=== PATIENT | female | born 1965 | race African-American/Black ===

== ENCOUNTER 2020-12-28 16:51 | Emergency (ER) | payer OTHER, MEDICAID ==
[~2020-12-28] VITALS: Ht 170.2 cm; Wt 122.5 kg
[~2020-12-28 16:51] MED LIST: ATEN-60 PO; CARI250T PO; NOR10T PO; ZOLP5TAB PO
[2020-12-28 19:13] LABS: Eosinophils # (auto) 0.2 10 ^3/uL (0-0.8); Lymphocytes # (auto) 2.5 10 ^3/uL (0.4-5.4); Monocytes # (auto) 0.4 10 ^3/uL (0-1.3); Nucleated Red Blood Cells % 0.2 %
[2020-12-28 19:16] LABS: Basophils # (auto) 0 10 ^3/uL (0-0.2); Basophils % (auto) 0.4 % (0.0-2.0); Eosinophils % (auto) 2.6 % (0.0-7.0); Hematocrit 39.7 % (36.0-46.0); Lymphocytes % (auto) 36.9 % (10.0-50.0); Mean Corpuscular Hemoglobin 26.8 pg (28.0-32.0); Mean Corpuscular Hgb Conc. 32.8 g/dL (32.0-36.0); Mean Corpuscular Volume 81.6 fL (80.0-100.0); Monocytes % (auto) 6.7 % (0.0-12.0); Neutrophils # (auto) 3.6 10 ^3/uL (1.6-8.6); Neutrophils % (auto) 53.4 % (37.0-80.0); Platelet Count (auto) 218 10^3/uL (140-450); Red Blood Cells 4.87 10^6/uL (4.0-5.20); Red Cell Distribution Width 15.7 % (11.8-14.3); White Blood Cell 6.7 10^3/uL (4.4-10.8)
[2020-12-28 19:30] LABS: Anion Gap 6 (5-15); Blood Urea Nitrogen 15 mg/dL (7-18); Calcium 8.7 mg/dL (8.5-10.1); Carbon Dioxide 32 mmol/L (21-32); Chloride 102 mmol/L (98-107); Glucose 201 mg/dL (74-106); Potassium 3.6 mmol/L (3.5-5.1); Sodium 140 mmol/L (136-145)
[2020-12-28] MEDS ORDERED: MECLIZINE HCL 25 MG TAB PO ONE (19:30)
[2020-12-28 19:38] LABS: Alanine Aminotransferase 47 U/L (13-56); Alkaline Phosphatase 88 U/L (45-117); Aspartate Aminotransferase 51 U/L (15-37); BUN/Creatinine Ratio 20.5; Bilirubin, Total 0.5 mg/dL (0.2-1.0); GFR African American 107 mL/min; GFR Non-African American 89 mL/min; Total Protein 7.7 g/dL (6.4-8.2)
[2020-12-28 20:25] LABS: Urine Bacteria FEW /hpf (None Seen); Urine Blood Negative /uL (Negative); Urine Hyaline Cast FEW /lpf (0 - 2); Urine Mucus FEW (None Seen); Urine Specific Gravity 1.028 (1.001-1.035); Urine WBC 3 /hpf (0 - 5)
[2020-12-28] MEDS ORDERED: CIPROFLOXACIN HCL 500 MG TAB PO ONE (22:00)
[2020-12-28 22:02] VITALS: BP 126/43
== END 2020-12-28 22:09 | disposition home or self-care (01) ==
LOC: ER 16:51 → EDBD 16:51 → ER 22:09
DX: H81.10 Benign paroxysmal vertigo, unspecified ear (principal); N39.0 Urinary tract infection, site not specified; R22.31 Localized swelling, mass and lump, right upper limb; I11.0 Hypertensive heart disease with heart failure; I50.9 Heart failure, unspecified; Z79.899 Other long term (current) drug therapy; Z98.890 Other specified postprocedural states; Z90.49 Acquired absence of other specified parts of digestive tract
CPT/HCPCS: 36415; 73130; 80053; 81001; 84484; 85025; 93005; 99285; J8597

== ENCOUNTER 2022-11-17 09:48 | Emergency (ER) | payer OTHER, MEDICAID ==
[~2022-11-17] VITALS: Ht 170.2 cm; Wt 134.6 kg
[2022-11-17 10:37] LABS: Urine Bacteria NONE SEEN /hpf (None Seen); Urine Blood Negative /uL (Negative); Urine Specific Gravity 1.014 (1.001-1.035); Urine Sperm PRESENT /hpf (None Seen); Urine WBC 2 /hpf (0 - 5)
[2022-11-17 11:10] VITALS: BP 141/70
[2022-11-17] MEDS ORDERED: ONDANSETRON ODT 4 MG TAB PO ONE (11:45)
[2022-11-17] MEDS ORDERED: ACETAMINOPHEN 500 MG TAB PO ONE (11:45)
[2022-11-17] MEDS ORDERED: ACET1CAP14 PO (12:57)
[2022-11-17] MEDS ORDERED: CEPH-510 PO (12:57)
[2022-11-17] MEDS ORDERED: ONDA-144 PO (12:57)
== END 2022-11-17 13:16 | disposition home or self-care (01) ==
LOC: ER 09:48
DX: N12 Tubulo-interstitial nephritis, not specified as acute or chronic (principal); I11.0 Hypertensive heart disease with heart failure; I50.9 Heart failure, unspecified; Z90.49 Acquired absence of other specified parts of digestive tract
CPT/HCPCS: 74176; 81001; 99284; Q0162

== ENCOUNTER 2023-07-02 14:58 | Emergency (ER) | payer OTHER, MEDICAID ==
[~2023-07-02] VITALS: Ht 170.2 cm; Wt 127.0 kg
[~2023-07-02 14:58] MED LIST changes: +ACET1CAP14 PO; +CEPH-510 PO; +ONDA-144 PO
[2023-07-02 16:37] LABS: Basophils % (auto) 0.7 % (0.0-2.0); Hemoglobin 12.8 g/dL (12.2-16.2); Neutrophils # (auto) 3.6 10 ^3/uL (1.6-8.6)
[2023-07-02 16:39] LABS: Basophils # (auto) 0.1 10 ^3/uL (0-0.2); Eosinophils # (auto) 0.1 10 ^3/uL (0-0.8); Hematocrit 40.8 % (36.0-46.0); Lymphocytes # (auto) 2.9 10 ^3/uL (0.4-5.4); Lymphocytes % (auto) 40.3 % (10.0-50.0); Mean Corpuscular Hemoglobin 23.1 pg (28.0-32.0); Mean Corpuscular Hgb Conc. 31.4 g/dL (32.0-36.0); Mean Corpuscular Volume 73.6 fL (80.0-100.0); Monocytes # (auto) 0.5 10 ^3/uL (0-1.3); Monocytes % (auto) 7.2 % (0.0-12.0); Neutrophils % (auto) 49.8 % (37.0-80.0); Nucleated Red Blood Cells % 0.1 %; Red Blood Cells 5.54 10^6/uL (4.0-5.20); Red Cell Distribution Width 19.1 % (11.8-14.3); White Blood Cell 7.3 10^3/uL (4.4-10.8)
[2023-07-02 16:55] LABS: Alanine Aminotransferase 16 U/L (7-40); Albumin 4.5 g/dL (3.2-4.8); Alkaline Phosphatase 100 U/L (46-116); Anion Gap 6 (5-15); Aspartate Aminotransferase 12 U/L (13-40); BUN/Creatinine Ratio 27.1 (10.0-20.0); Blood Urea Nitrogen 16 mg/dL (9-23); Calcium 9.8 mg/dL (8.7-10.4); Carbon Dioxide 32 mmol/L (20-30); Chloride 103 mmol/L (98-107); Glucose 94 mg/dL (74-106); Potassium 4.3 mmol/L (3.5-5.1); Sodium 141 mmol/L (136-145)
[2023-07-02 16:56] LABS: Bilirubin, Total 0.7 mg/dL (0.2-1.0); Total Protein 7.6 g/dL (5.7-8.2)
[2023-07-02] MEDS ORDERED: PROCHLORPERAZINE MALEATE 10 MG TAB PO ONE (17:45)
[2023-07-02] MEDS ORDERED: HYDROcodone-ACET 5/325MG TAB PO ONE (17:45)
[2023-07-02 19:37] LABS: Urine Bacteria NONE SEEN /hpf (None Seen); Urine Blood Negative /uL (Negative); Urine Clarity HAZY (Clear); Urine Color Yellow (Yellow); Urine Mucus FEW (None Seen); Urine Protein, UAD TRACE (Negative); Urine Specific Gravity 1.028 (1.001-1.035); Urine Urobilinogen Normal (Negative); Urine WBC 13 /hpf (0 - 5); Urine pH 5.5 (5.0-8.0)
[2023-07-02 19:45] VITALS: BP 164/88; RESP 16; TEMP 98.2; O2SAT 100
[2023-07-02] MEDS ORDERED: CEPH500C PO (20:03)
[2023-07-02] MEDS ORDERED: ZOFR4T PO (20:03)
[2023-07-02] MEDS ORDERED: BUTA-280 OR (20:03)
[2023-07-02 20:13] VITALS: PULSE 58
[2023-07-02] MEDS ORDERED: cloNIDine HCL 0.1 MG TAB PO ONE (20:45)
== END 2023-07-02 22:24 | disposition home or self-care (01) ==
LOC: ER 14:58
DX: R51.9 Headache, unspecified (principal); I11.0 Hypertensive heart disease with heart failure; I50.9 Heart failure, unspecified; N39.0 Urinary tract infection, site not specified; R42 Dizziness and giddiness; Z90.49 Acquired absence of other specified parts of digestive tract
CPT/HCPCS: 36415; 70450; 80053; 81001; 84484; 85025; 93005; 99285; Q0164

== ENCOUNTER 2024-05-16 03:49 | Emergency (ER) | payer OTHER, MEDICAID ==
[~2024-05-16] VITALS: Ht 172.7 cm; Wt 130.4 kg
[~2024-05-16 03:49] MED LIST changes: +BUTA-280 OR; +CEPH500C PO; +ZOFR4T PO
[2024-05-16] MEDS ORDERED: CEPH500C PO (05:07)
[2024-05-16] MEDS: cefTRIAXone SOD 1,000 MG VL IM ONE (05:12)
[2024-05-16 05:18] VITALS: BP 142/89; PULSE 85; RESP 20; TEMP 98; O2SAT 99
== END 2024-05-16 05:28 | disposition home or self-care (01) ==
LOC: ER 03:49
DX: S60.465A Insect bite (nonvenomous) of left ring finger, initial encounter (principal); I11.0 Hypertensive heart disease with heart failure; I50.9 Heart failure, unspecified; E11.9 Type 2 diabetes mellitus without complications; Z79.899 Other long term (current) drug therapy; Z90.49 Acquired absence of other specified parts of digestive tract; W57.XXXA Bitten or stung by nonvenomous insect and other nonvenomous arthropods, initial encounter; Y93.89 Activity, other specified; Y92.89 Other specified places as the place of occurrence of the external cause; Y99.8 Other external cause status
CPT/HCPCS: 96372; 99284; J0696

== ENCOUNTER 2025-02-23 11:17 | Inpatient (IN) | payer OTHER, MEDICAID ==
[~2025-02-23] VITALS: Ht 170.2 cm; Wt 137.3 kg
[2025-02-23] MEDS: NITROGLYCERIN 0.4 MG SL TAB SL ONE (11:30)
--- NOTE | 2025-02-23 11:36 | ED.PDOC ---
HPI Comments YURI: JULIANA HPI: Poor Historian. 60-year-old female presents to emergency depart for evaluation of one-week history of intermittent midsternal chest pressure tightness. Nonradiating. No particular alleviating or precipitating factors. Patient states she has also bilateral hands and feet numbness and tingling at the tips of her fingers and digits. This is also intermittent. Denies any other acute symptoms. Past Medical History: Past Surgical History: REVIEW OF SYSTEMS: CONSTITUTIONAL: Denies acute: fever, diaphoresis, chills, HEAD: Denies acute: headache, photophobia Eyes: Denies acute: Double vision, vision loss, eye pain, eye discharge. EARS: Denies acute: tinnitus, hearing loss, ear discharge, ear pain, THROAT: Denies acute: sore throat, swelling, difficulty swallowing , pain with swallowing, change in voice. NECK: Denies acute: neck pain, neck swelling, stiff neck. HEART: Denies acute : , palpitations, LUNGS: Denies acute: SOB, wheezing, cough, hemoptysis ABDOMEN: Denies acute: abdominal pain, Nausea, Vomiting, diarrhea, melena , hematemesis, hematochezia SKIN: Denies acute: rash, redness, lesions, itchiness. EXTREMITIES: Denies acute: calf pain, , , weakness, denies pain in extremity. Denies acute: Low back pain. Neuro: Denies acute: focal neurological deficit, motor or sensory focal neurological deficit, tremors, seizure like activity, confusion, dizziness, change in mental status, loss of bowel or bladder function, cauda equina like symptoms. : Denies acute: dysuria, hematuria, flank pain, increase in urinary frequency. PSYCH: Denies acute: hallucination, suicidal ideation, homicidal ideation. FEMALE: Denies acute: abnormal vaginal bleeding, foul odor, unusual discharge. PHYSICAL EXAM: General: ----cgyl-[id number]----acute distress, awake and alert. Head: normocephalic, atraumatic. Neck: supple, trachea is midline, no swelling. Throat: Normal phonation. Eyes:, no erythema, no purulent discharge, no proptosis, no icterus. Heart: regular rate, regular rhythm, no significant murmur appreciated. Lungs: no apparent respiratory distress, Able to speak in full sentences. No wheezing, no rhonchi, no crackles. No stridors Clear to auscultation bilaterally. Abdomen: non tender to palpation, non distended, soft, no guarding, no rebound, + bowel sounds. Obese Neuro: Awake, Alert, oriented to name, self, situation, follows commands GCS=15. Speech is normal. Skin: no petechia, no purpura, no cyanosis, non-pale, not jaundice. Lower extremities: --trace bilateral- Pitting edema no deformity, no focal swelling, no calf TTP. Makes eye contact. moves all four extremities. Face: no apparent facial droop. Ambulating in the ED independently. ED COURSE: DISCLAIMER: This medical document was created using an electronic medical record system with voice recognition software and computerized dictation system. Although this document has been carefully reviewed, there might still be some phonetic and typographical errors. Occasional wrong-word or "sound-alike" substitutions may have occurred due to the inherent limitations of voice recognition software. These areas are purely typographical due to imperfections of the software programs and do not reflect any compromise in the patient's medical care. Please read the chart carefully and recognize, using context, where these substitutions have occurred. Chief Complaint: Chest Pain Time Seen by MD: 11:23 Primary Care Provider: gabriele johnson Reviewed Notes: Allergies Allergies: Coded Allergies: NO KNOWN ALLERGIES (Unverified , 05/15/12) Home Meds Active Scripts Cephalexin Monohydrate (Cephalexin) 500 Mg Cap, 1 CAP PO BID for 7 Days, #14 CAP 0 Refills Prov:DRE MATHEW 05/16/24 Ondansetron Odt 4MG Tab (ZOFRAN PO) 4 Mg Tb, 1 TAB PO Q8HPRN PRN, #10 TAB ODT TAB-DISSOLVE IN MOUTH, THEN SWALLOW as needed for nausea vomiting Prov:PRIMO FORRESTER [employer] 07/02/23 Swtgdafjaz-Bzazfxvupfmbj-Xwlzr (FIORICET) Cap, 1 CAP OR Q6HPRN PRN, #10 CAP as needed for headache Prov:PRIMO FORRESTER [employer] 07/02/23 Cephalexin Monohydrate (Cephalexin) 500 Mg Cap, 1 CAP PO QID for 10 Days, #40 CAP Prov:PRIMO FORRESTER [employer] 07/02/23 Ondansetron (Zofran) 4 Mg Tab, 1 TAB PO Q6HR PRN, #12 TAB 0 Refills Prov:CRISTINA CHAPPELL [facility] 11/17/22 Acetaminophen (Tylenol) 325 Mg Cap, 325 MG PO Q4HPRN PRN, #30 CAP 0 Refills Take 1-2 caps po q4h prn for pain/fever (Do not exceed 3,000mg of acetaminophen in 24 hours) Prov:CRISTINA CHAPPELL [facility] 11/17/22 Cephalexin ( Keflex 500) 500 Mg Cap, 1 CAP PO QID for 7 Days, #28 CAP 0 Refills Prov:CRISTINA CHAPPELL [facility] 11/17/22 Reported Medications Zolpidem Tartrate (Ambien) 5 Mg Tab, 5 MG PO QHS 05/15/12 Hydrocodone-Acetaminophen ([place] 10/325MG) 1 Tab Tb, 10 MG PO DAILY 05/15/12 Carisoprodol (Soma) 250 Mg Tab, 250 MG PO DAILY 05/15/12 Atenolol (Atenolol) 25 Mg Tab, 25 MG PO DAILY 05/15/12 Information Source: Patient Past Medical History PAST MEDICAL HISTORY: CHF, DM, HTN Surgical History: Cholecystectomy, ORDNANCE OFFICER History: No Pertinent ORDNANCE OFFICER History Family History Family History: Unknown Social History Smoker: Non-Smoker Alcohol: Denies ETOH Use Drugs: Denies Drug Use Lives In: Home Was a procedure done? Was a procedure done?: No CP Differential Dx Differential Diagnosis: N/A Differential Diagnosis: Other (Ddx include but not limitied to gastritis, musculoskeletal pain, radiculopathy, atypical chest pain, dissection, aneurysm, ACS, unstable angina, hiatal hernia, GERD, anxiety, costochondritis, PE, pneumothroax, neoplasm, cardiac ischemia, drug abuse, anemia.) X-Ray, Labs, Meds, VS Vital Signs Date Time Temp Pulse Resp B/P (MAP) Pulse Ox O2 Delivery O2 Flow Rate FiO2 02/23/25 15:22 98.9 71 16 166/111 (129) 96 98.9 02/23/25 13:27 68 17 95 Room Air 02/23/25 13:27 99.1 68 17 176/86 (116) 95 99.1 02/23/25 12:21 66 02/23/25 11:34 97.6 70 16 113/97 (102) 96 97.6 02/23/25 11:30 176/86 02/23/25 11:23 70 Lab Test 02/23/25 15:25 02/23/25 13:11 02/23/25 11:38 Range/Units Troponin I High Sensitivity 21 24 </=34 ng/L Urine Color Yellow Yellow Urine Clarity Clear Clear Urine pH 5.5 5.0-9.0 Urine Specific [place] 1.037 H 1.001-1.035 Urine Protein Trace H Negative Urine Ketones Negative Negative Urine Blood Negative Negative /uL Urine Nitrite Negative Negative Urine Bilirubin Negative Negative Urine Urobilinogen Normal Negative mg/dL Urine Leukocyte Esterase Negative Negative /uL Urine RBC 2 0 - 4 /hpf Urine Microscopic WBC 3 0-5 /HPF Urine Squamous Epithelial Cells Few <5 /hpf Urine Bacteria None seen None Seen /hpf Urine Mucus Few None Seen Urine Glucose Normal Normal mg/dL White Blood Count 7.1 4.4-10.8 10^3/uL Red Blood Count 4.95 4.0-5.20 10^6/uL Hemoglobin 12.5 12.2-16.2 g/dL Hematocrit 39.4 36.0-46.0 % Mean Corpuscular Volume 79.6 L 80.0-100.0 fL Mean Corpuscular Hemoglobin 25.3 L 28.0-32.0 pg Mean Corpuscular Hemoglobin Concent 31.9 L 32.0-36.0 g/dL Red Cell Distribution Width 17.2 H 11.8-14.3 % Platelet Count 229 140-450 10^3/uL Mean Platelet Volume 8.1 6.9-10.8 fL Neutrophils (%) (Auto) 65.4 37.0-80.0 % Lymphocytes (%) (Auto) 27.4 10.0-50.0 % Monocytes (%) (Auto) 4.5 0.0-12.0 % Eosinophils (%) (Auto) 2.0 0.0-7.0 % Basophils (%) (Auto) 0.7 0.0-2.0 % Neutrophils # (Auto) 4.6 1.6-8.6 10 ^3/uL Lymphocytes # (Auto) 1.9 0.4-5.4 10 ^3/uL Monocytes # (Auto) 0.3 0-1.3 10 ^3/uL Eosinophils # (Auto) 0.1 0-0.8 10 ^3/uL Basophils # (Auto) 0 0-0.2 10 ^3/uL Nucleated Red Blood Cells 0.1 % Sodium Level 141 136-145 mmol/L Potassium Level 3.6 3.5-5.1 mmol/L Chloride Level 103 98-107 mmol/L Carbon Dioxide Level 32 H 20-31 mmol/L Anion Gap 6 5-15 Blood Urea Nitrogen 13 9-23 mg/dL Creatinine 0.72 0.550-1.02 mg/dL Glomerular Filtration Rate Calc 97 >90 mL/min BUN/Creatinine Ratio 18.1 10.0-20.0 Serum Glucose 117 H 74-106 mg/dL Lactic Acid Level 1.0 0.4-2.0 mmol/L Calcium Level 9.9 8.7-10.4 mg/dL Total Bilirubin 0.7 0.2-1.0 mg/dL Aspartate Amino Transferase (AST) 16 13-40 U/L Alanine Aminotransferase (ALT) 10 7-40 U/L Alkaline Phosphatase 88 46-116 U/L B-Type Natriuretic Peptide 54.47 0-100 pg/mL Total Protein 7.2 5.7-8.2 g/dL Albumin 4.5 3.2-4.8 g/dL Thyroid Stimulating Hormone (TSH) 0.94 0.55-4.78 uIU/mL [place] [address] Ph: [phone] DIAGNOSTIC IMAGING Diagnostic Imaging Report : [id number] Signed PATIENT: JORI WELCHACCT: [id number] UNIT: [id number] : 1965 LOC: ER ROOM / BED: / AGE / SEX: 60 / F ADM STATUS: REG ER SERVICE 1135 ORDERING PHYSICIAN: JORGE TAMEZ DO PROCEDURE(s): CXRP - CHEST PORTABLE REASON: CP ORDER NUMBER(s): [id number], ACCESSION NUMBER(s): [id number] CHEST RADIOGRAPH Indication: CP Technique: Single frontal view of the chest was obtained COMPARISON: None FINDINGS: Lines and Tubes: None Lungs: Increased interstitial prominence Pleura: No effusion. No pneumothorax. Cardiomediastinal contours: Cardiomegaly Bones: Unremarkable IMPRESSION: Mild pulmonary vascular congestion or viral pneumonia. Time of 1ST Reevaluation: 00:00 Reevaluation 1ST: N/A Patient Education/Counseling: Diagnosis, Treatment Family Education/Counseling: Other Comments MDM: patient presented with the above HPI.---cardiac---workup was initiated. patient was found with the above mentioned diagnosis. the following medications were ordered: please refer to order lists of meds and tests obtained by myself Dr. Tamez. Patient ED course and VS have been stabilized. Patient has been reassessed in the ED and remained in a stable condition. Pertinent incidental findings were discussed with the patient and/or family. Patient/family voices understanding and is agreeable with plan. Patient has been observed in the ED adequate length of time to insure improvement/stability. Escalation of care considered: Consideration of escalation to observation or admission Patient was given aspirin and nitroglycerin. Patient was ADMITTED to the medicine team for further evaluation and treatment of their presentation. All the reports of any imaging studies that were ordered by myself were reviewed by myself. SEPSIS Sepsis Screen Physician Orders Electrocardigram (02/23/25 11:20) Electrocardigram (02/23/25 12:20) Electrocardigram (02/23/25 14:20) Green Material Value Added Assessor (02/23/25 ) Chest Portable (02/23/25 11:35) Vital Signs Date Time Temp Pulse Resp B/P (MAP) Pulse Ox O2 Delivery O2 Flow Rate FiO2 02/23/25 15:22 98.9 71 16 166/111 (129) 96 98.9 02/23/25 13:27 68 17 95 Room Air 02/23/25 13:27 99.1 68 17 176/86 (116) 95 99.1 02/23/25 12:21 66 02/23/25 11:34 97.6 70 16 113/97 (102) 96 97.6 02/23/25 11:30 176/86 02/23/25 11:23 70 Laboratory Tests Test 02/23/25 11:38 Lactic Acid Level 1.0 mmol/L (0.4-2.0) White Blood Count 7.1 10^3/uL (4.4-10.8) Departure 1 Departure Time of Disposition: 00:00 Impression: Primary Impression: Chest pain Disposition: ADMITTED INPATIENT Admit to: Tele Condition: Guarded Discharged With: Self Critical Care Note Critical Care Time?: No Heart Score Heart Score: Heart Score Response (Comments) Value History Moderate Suspicious 1 EKG Normal 0 Age 45-64 1 Risk Factors >3 or Hx ASHD 2 Troponin Normal limit 0 Total 4 I personally scribed for JORGE TAMEZ DO ([email or web address]) on 02/23/25 at 12:06. Electronically submitted by Loan Murphy ([employer]). I personally scribed for JORGE TAMEZ DO ([email or web address]) on 02/23/25 at 13:57. Electronically submitted by Loan Murphy ([employer]). I personally scribed for JORGE TAMEZ DO ([email or web address]) on 02/23/25 at 13:59. Electronically submitted by Loan Murphy ([employer]). JORGE TAMEZ DO Feb 23, 2025 11:36
[2025-02-23 12:00] LABS: Hematocrit 39.4 % (36.0-46.0); Hemoglobin 12.5 g/dL (12.2-16.2); Mean Corpuscular Hemoglobin 25.3 pg (28.0-32.0); Mean Corpuscular Volume 79.6 fL (80.0-100.0); Nucleated Red Blood Cells % 0.1 %
--- NOTE | 2025-02-23 12:04 | DVH ---
CHEST RADIOGRAPH Indication: CP Technique: Single frontal view of the chest was obtained COMPARISON: None FINDINGS: Lines and Tubes: None Lungs: Increased interstitial prominence Pleura: No effusion. No pneumothorax. Cardiomediastinal contours: Cardiomegaly Bones: Unremarkable IMPRESSION: Mild pulmonary vascular congestion or viral pneumonia.
[2025-02-23 12:12] LABS: Alanine Aminotransferase 10 U/L (7-40); Albumin 4.5 g/dL (3.2-4.8); Alkaline Phosphatase 88 U/L (46-116); Anion Gap 6 (5-15); BUN/Creatinine Ratio 18.1 (10.0-20.0); Bilirubin, Total 0.7 mg/dL (0.2-1.0); Blood Urea Nitrogen 13 mg/dL (9-23); Calcium 9.9 mg/dL (8.7-10.4); Carbon Dioxide 32 mmol/L (20-31); Chloride 103 mmol/L (98-107); Glucose 117 mg/dL (74-106); Potassium 3.6 mmol/L (3.5-5.1); Sodium 141 mmol/L (136-145); Total Protein 7.2 g/dL (5.7-8.2)
[2025-02-23] MEDS: ASPirin-EC 325mg tab PO ONE (13:25)
[2025-02-23 14:05] LABS: Urine Protein, UAD TRACE (Negative)
[2025-02-23] MEDS ORDERED: NITROGLYCERIN 0.4 MG SL TAB SL PRN (16:45)
[2025-02-23] MEDS ORDERED: MORPHINE SULFATE INJ 2 MG/ml SYRG IV PRN (16:45)
--- NOTE | 2025-02-23 16:47 | DVHHPRES ---
History of Present Illness Resident Creating Document: YONATHAN AZEVEDO RESIDENT History of Present Illness Patient is a 60-year-old female with past medical history of hypertension since 20 years, diabetes mellitus, CHF, arthritis. She came to the ED with ongoing 1 week history of pressure-like chest pain, with no radiation, 6/10 in intensity, intermittent, no aggravating factors, relieved by nitroglycerin. Patient complained of shortness of breath after walking a short distance, but denies any headaches, palpitations, nausea, vomiting, syncopal episodes, cough, fever, leg swelling. She also complained of tingling sensation in her hands and feet. Her blood pressure at home and it showed 180/110. She denied any recent travel, sick contacts. Surgical history: Hysterectomy, surgery on left arm. Family history: Noncontributory Personal history: Denies any smoking, alcohol, drug use Constitutional: Denies weight loss, fever and chills. HEENT: Denies changes in vision and hearing. Respiratory: shortness of breath and denies cough Cardiovascular: chest pain GI: denies Abdominal pain : Denies dysuria and urinary frequency. Musculoskeletal: Denies myalgias and joint pain Skin: Denies rash and pruritus. Neurological: Denies dizziness, headache, vision or hearing problems Review of Systems Allergies: Coded Allergies: NO KNOWN ALLERGIES (Unverified , 05/15/12) Medications Current Medications Medications Dose Ordered Sig/Idalmis Route Start Time Stop Time Status Last Admin Dose Admin Nitroglycerin 0.4 mg Q5MINP PRN SL 02/23/25 16:45 UNV Morphine Sulfate 2 mg Q30M PRN IV 02/23/25 16:45 UNV Exam Vital Signs Vital Signs Date Time Temp Pulse Resp B/P (MAP) Pulse Ox O2 Delivery O2 Flow Rate FiO2 02/23/25 15:22 98.9 71 16 166/111 (129) 96 98.9 02/23/25 13:27 Room Air Exam General: Patient alert and oriented in person, place and time. Patient following commands. HEENT: Normocephalic, atraumatic, moist mucous membranes Respiratory/pulmonary: Clear lungs bilaterally, vesicular murmurs present in almost all lung lee, no associated crackles or wheezes. Cardiovascular: Normal heart sounds S1 and S2 with no associated murmurs, mild pain on palpation Abdomen: Abdomen nondistended, there is no pain to palpation in any of the abdominal quadrants, no palpable masses. Extremities: There is no peripheral edema present at the lower extremities. Peripheral Pulses: 3+ Radial (R). 3+ Radial (L). 3+ Dorsalis pedis (R). 3+ Dorsalis pedis(L) Skin: No rashes or pruritus, there is no sacral edema present at this time. Neurological: Intact cranial nerves with no focal neurologic deficits Labs/Xrays Labs Test 02/23/25 15:25 02/23/25 13:11 02/23/25 11:38 Range/Units Troponin I High Sensitivity 21 </=34 ng/L Urine Color Yellow Yellow Urine Clarity Clear Clear Urine pH 5.5 5.0-9.0 Urine Specific [place] 1.037 H 1.001-1.035 Urine Protein Trace H Negative Urine Ketones Negative Negative Urine Blood Negative Negative /uL Urine Nitrite Negative Negative Urine Bilirubin Negative Negative Urine Urobilinogen Normal Negative mg/dL Urine Leukocyte Esterase Negative Negative /uL Urine RBC 2 0 - 4 /hpf Urine Microscopic WBC 3 0-5 /HPF Urine Squamous Epithelial Cells Few <5 /hpf Urine Bacteria None seen None Seen /hpf Urine Mucus Few None Seen Urine Glucose Normal Normal mg/dL White Blood Count 7.1 4.4-10.8 10^3/uL Red Blood Count 4.95 4.0-5.20 10^6/uL Hemoglobin 12.5 12.2-16.2 g/dL Hematocrit 39.4 36.0-46.0 % Mean Corpuscular Volume 79.6 L 80.0-100.0 fL Mean Corpuscular Hemoglobin 25.3 L 28.0-32.0 pg Mean Corpuscular Hemoglobin Concent 31.9 L 32.0-36.0 g/dL Red Cell Distribution Width 17.2 H 11.8-14.3 % Platelet Count 229 140-450 10^3/uL Mean Platelet Volume 8.1 6.9-10.8 fL Neutrophils (%) (Auto) 65.4 37.0-80.0 % Lymphocytes (%) (Auto) 27.4 10.0-50.0 % Monocytes (%) (Auto) 4.5 0.0-12.0 % Eosinophils (%) (Auto) 2.0 0.0-7.0 % Basophils (%) (Auto) 0.7 0.0-2.0 % Neutrophils # (Auto) 4.6 1.6-8.6 10 ^3/uL Lymphocytes # (Auto) 1.9 0.4-5.4 10 ^3/uL Monocytes # (Auto) 0.3 0-1.3 10 ^3/uL Eosinophils # (Auto) 0.1 0-0.8 10 ^3/uL Basophils # (Auto) 0 0-0.2 10 ^3/uL Nucleated Red Blood Cells 0.1 % Sodium Level 141 136-145 mmol/L Potassium Level 3.6 3.5-5.1 mmol/L Chloride Level 103 98-107 mmol/L Carbon Dioxide Level 32 H 20-31 mmol/L Anion Gap 6 5-15 Blood Urea Nitrogen 13 9-23 mg/dL Creatinine 0.72 0.550-1.02 mg/dL Glomerular Filtration Rate Calc 97 >90 mL/min BUN/Creatinine Ratio 18.1 10.0-20.0 Serum Glucose 117 H 74-106 mg/dL Lactic Acid Level 1.0 0.4-2.0 mmol/L Calcium Level 9.9 8.7-10.4 mg/dL Total Bilirubin 0.7 0.2-1.0 mg/dL Aspartate Amino Transferase (AST) 16 13-40 U/L Alanine Aminotransferase (ALT) 10 7-40 U/L Alkaline Phosphatase 88 46-116 U/L B-Type Natriuretic Peptide 54.47 0-100 pg/mL Total Protein 7.2 5.7-8.2 g/dL Albumin 4.5 3.2-4.8 g/dL SEPSIS Sepsis Screen Date sepsis recognized/suspect: Feb 16, 2025 Time Sepsis recognized/suspect: 1127 Recent Procedure: No On Antibiotic Therapy: No Respiratory Rate >20: No Heart Rate >90: No Temp<36 C (96.8 F) or >38.3 C: No SBP <90 or MAP <65 mmHG: No New Acute Mental Status Change: No Is the patient on CPAP, BIPAP,: No Physician Orders Electrocardigram (02/23/25 11:20) Troponin-I Hs (02/23/25 14:20) Electrocardigram (02/23/25 12:20) Electrocardigram (02/23/25 14:20) Brass Bobbin Winder (02/23/25 ) Chest Portable (02/23/25 11:35) Admit (02/23/25 16:37) Nitroglycerin Sublingual (Ntrostat Subli (02/23/25 16:45) Morphine Sulfate Injection (02/23/25 16:45) Escalator Operator For 24 Hours (02/23/25 16:37) Rhythm Strips Once Every Shift (02/23/25 16:37) Echo 2d Mode Cardiac Dop (02/23/25 16:40) Thyroid Stimulating Hormone (02/23/25 16:40) Drug Screen (02/23/25 16:40) Vital Signs Date Time Temp Pulse Resp B/P (MAP) Pulse Ox O2 Delivery O2 Flow Rate FiO2 02/23/25 15:22 98.9 71 16 166/111 (129) 96 98.9 02/23/25 13:27 68 17 95 Room Air 02/23/25 13:27 99.1 68 17 176/86 (116) 95 99.1 02/23/25 12:21 66 02/23/25 11:34 97.6 70 16 113/97 (102) 96 97.6 02/23/25 11:30 176/86 02/23/25 11:23 70 Laboratory Tests Test 02/23/25 11:38 Lactic Acid Level 1.0 mmol/L (0.4-2.0) White Blood Count 7.1 10^3/uL (4.4-10.8) Medications Medications Dose Ordered Sig/Idalmis Route Start Time Stop Time Status Last Admin Dose Admin Aspirin 325 mg ONCE ONCE PO 02/23/25 11:30 02/23/25 11:31 DC 02/23/25 13:25 325 MG Nitroglycerin 0.4 mg ONCE ONCE SL 02/23/25 11:30 02/23/25 11:31 DC 02/23/25 11:30 0.4 MG Assessment/Plan Assessment/Plan # Chest pain Rule out ACS # Hypertensive Urgency # Possible Acute Systolic/Diastolic CHF # History of diabetes mellitus # Pulm Edema # obesity- BMI 34.2 - admitted to telemetry - patient came with shortness of breath, hypertensive urgency - chest x-ray shows Mild pulmonary vascular congestion or viral pneumonia. - ordered Echo - IV hydralazine 10 mg q.6 - losartan 50 mg p.o. daily - nitroglycerine PRN - morphine 2 mg PPI: PPX: None DVT PPX: Ambulatory Goals of care discussed with patient for 23 minutes: Full code Case discussed with Dr. Vela Plan discussed with: Patient My Orders Orders - YONATHAN AZEVEDO RESIDENT Procedure Category Date Status Time Admit ADMIT 02/23/25 Transmitted 16:37 Nitroglycerin PHA 02/23/25 Logged Sublingual (Ntrostat 16:45 Morphine Sulfate PHA 02/23/25 Logged Injection 16:45 Escalator Operator For KIRK 02/23/25 In Process 24 Hours 16:37 Rhythm Strips Once KIRK 02/23/25 In Process Every Shift 16:37 Echo 2d Mode Cardiac US 02/23/25 Logged DOP 16:40 Thyroid Stimulating LAB 02/23/25 Transmitted Hormone 16:40 Drug Screen LAB 02/23/25 Transmitted 16:40 Date of Service: Feb 23, 2025 Billing Provider: JATIN VELA MD Common Visit Codes: [id number] INP/OBS CARE (HIGH) Secondary Visit Codes: [id number] CARE PLAN 30 MINUTES YONATHAN AZEVEDO Feb 23, 2025 16:47 JATIN VELA MD Feb 23, 2025 19:14
[2025-02-23] MEDS: LOSARTAN POTASSIUM 50 MG TAB PO ONE (18:32)
[2025-02-23 18:40] VITALS: BP 159/60; PULSE 69; RESP 13; TEMP 98.3; O2SAT 92
[2025-02-23 21:00] VITALS: BP 124/66; PULSE 65; RESP 14; TEMP 98; O2SAT 94
[2025-02-23] MEDS ORDERED: DEXTROSE (50%) 50ML SYRG IV PRN (21:00)
[2025-02-23] MEDS: InsuLIN REG 1unit/0.01ml Soln (100units/ml) SC SCH (22:00)
[2025-02-23] MEDS: FUROSEMIDE 20 MG/2 ML VIAL IV ONE (22:12)
[2025-02-23] MEDS: ACCU-CHEK COMFORT CURVE STRIP VI SCH (22:24)
[2025-02-23 22:45] VITALS: BP_SYST 124; BP_SYST 152; BP_DIAS 66; BP_DIAS 98; PULSE 65; PULSE 70; RESP 16; TEMP 98; O2SAT 94; O2SAT 97
[2025-02-24] VITALS (9 sets, daily range): BP systolic 128–180; BP diastolic 73–93; PULSE 68–118; RESP 12–18; TEMP 97.7–98.5; O2SAT 94–100
[2025-02-24] MEDS: hydrALAZINE HCL 20 MG/ML VL IV PRN (03:31)
[2025-02-24] MEDS: FUROSEMIDE 40 MG/4 ML VIAL IV SCH (05:54)
[2025-02-24] MEDS: ONDANSETRON HCL 4 MG/2 ML VIAL IV ONE (05:55)
[2025-02-24] MEDS: HYDROcodone-ACET 5/325MG TAB PO ONE (06:22)
[2025-02-24 07:25] LABS: Hemoglobin 12.9 g/dL (12.2-16.2); Nucleated Red Blood Cells % 0.0 %
[2025-02-24 07:34] LABS: Calcium 10.2 mg/dL (8.7-10.4); Chloride 101 mmol/L (98-107); Hematocrit 39.1 % (36.0-46.0); Mean Corpuscular Hemoglobin 25.9 pg (28.0-32.0); Mean Corpuscular Volume 78.3 fL (80.0-100.0); Sodium 142 mmol/L (136-145)
[2025-02-24 07:35] LABS: Anion Gap 10 (5-15); Carbon Dioxide 31 mmol/L (20-31); Potassium 3.4 mmol/L (3.5-5.1)
[2025-02-24 07:40] LABS: BUN/Creatinine Ratio 25.8 (10.0-20.0); Blood Urea Nitrogen 16 mg/dL (9-23); Glucose 84 mg/dL (74-106)
[2025-02-24] MEDS: LOSARTAN POTASSIUM 50 MG TAB PO SCH (08:08)
[2025-02-24 12:01] LABS: Opiate Scree,Urine Neg (NEGATIVE)
[2025-02-24 12:03] LABS: Triglycerides 78 mg/dL (< 150)
[2025-02-24 12:04] LABS: Cholesterol 118 mg/dL (< 200)
[2025-02-24 12:05] LABS: HDL Cholesterol 46 mg/dL (40-59)
[2025-02-24 12:10] LABS: Amphetamine Screen, Urine Neg (NEGATIVE); Barbiturate Scree,Urine Neg (NEGATIVE); Benzodiazephine Screen, Urine Neg (NEGATIVE); Cannabinoid Screen, Urine Neg (NEGATIVE); Cocaine Screen, Urine Neg (NEGATIVE); Phencyclidine Screen, Urine Neg (NEGATIVE)
[2025-02-24] MEDS: HYDROcodone-ACET 5/325MG TAB PO PRN (13:15)
--- NOTE | 2025-02-24 17:06 | DVHPNRES ---
Progress Note Date Seen: Feb 24, 2025 Resident Creating Document: YONATHAN AZEVEDO RESIDENT Medical Necessity Reason Pt with a Central, PICC or Fol: No Subjective Review of Systems Patient is a 60-year-old female with past medical history of hypertension since 20 years, diabetes mellitus, CHF, arthritis. She came to the ED with ongoing 1 week history of pressure-like chest pain, with no radiation, 6/10 in intensity, intermittent, no aggravating factors, relieved by nitroglycerin. Patient complained of shortness of breath after walking a short distance, but denies any headaches, palpitations, nausea, vomiting, syncopal episodes, cough, fever, leg swelling. She also complained of tingling sensation in her hands and feet. Her blood pressure at home and it showed 180/110. She denied any recent travel, sick contacts. Patient seen at bedside. Patient appears comfortable, alert x3, patient complained of mild pressure in her chest but denies any chest pain, shortness of breath, palpitations, nausea, vomiting, diarrhea, dizziness, headaches. Today echo was done and results are pending. Continue monitoring blood pressure, added metoprolol. Objective vital signs Vital Sign Date Time Temp Pulse Resp B/P (MAP) Pulse Ox O2 Delivery O2 Flow Rate FiO2 02/24/25 16:38 189/92 02/24/25 12:47 98.3 86 17 100 98.3 02/23/25 23:00 Room Air* 0 21 Total Intake and Output 02/23/25 02/23/25 02/24/25 15:00 23:00 07:00 Intake Total 420 ml Balance 420 ml medications Current Medications Medications Dose Ordered Sig/Idalmis Route Start Time Stop Time Status Last Admin Dose Admin Nitroglycerin 0.4 mg Q5MINP PRN SL 02/23/25 16:45 Morphine Sulfate 2 mg Q30M PRN IV 02/23/25 16:45 Losartan Potassium 50 mg DAILY PO 02/24/25 10:00 02/24/25 08:08 50 MG Hydralazine HCl 10 mg Q6HP PRN IV 02/23/25 17:00 02/24/25 16:38 10 MG Diagnostic Test (Pha) 1 strip ACHS 02/23/25 22:00 02/24/25 11:30 1 STRIP Insulin Human Regular ACHS SC 02/23/25 22:00 Dextrose 50 ml UD PRN IV 02/23/25 21:00 Furosemide 40 mg DAILY IV 02/25/25 10:00 Acetaminophen/ Hydrocodone Bitart 1 tab Q6HPRN PRN PO 02/24/25 13:00 02/24/25 13:15 1 TAB Metoprolol Tartrate 12.5 mg BID PO 02/24/25 22:00 Examination General: Patient alert and oriented in person, place and time. Patient following commands. HEENT: Normocephalic, atraumatic, moist mucous membranes Respiratory/pulmonary: Clear lungs bilaterally, vesicular murmurs present in almost all lung lee, no associated crackles or wheezes. Cardiovascular: Normal heart sounds S1 and S2 with no associated murmurs Abdomen: Abdomen nondistended, there is no pain to palpation in any of the abdominal quadrants, no palpable masses. Obese Abdomen Extremities: There is no peripheral edema present at the lower extremities. Peripheral Pulses: 3+ Radial (R). 3+ Radial (L). 3+ Dorsalis pedis (R). 3+ Dorsalis pedis(L) Skin: No rashes or pruritus, there is no sacral edema present at this time. Neurological: Intact cranial nerves with no focal neurologic deficits laboratory and microbiology Laboratory Tests 02/24/25 05:27 Test 02/24/25 05:27 Range/Units Serum Glucose 84 74-106 mg/dL Problem List/Assessment/Plan Problem List/Assessment/Plan # Chest pain Rule out ACS # Hypertensive Urgency # Rule out Acute Systolic/Diastolic CHF # History of diabetes mellitus # Pulm Edema # obesity- BMI 34.2 # mild hypokalemia - admitted to telemetry - patient came with shortness of breath, hypertensive urgency - chest x-ray shows Mild pulmonary vascular congestion or viral pneumonia. - ordered Echo, pending - IV Furosemide 40 mg - IV hydralazine 10 mg q.6 prn - losartan 50 mg p.o. daily - nitroglycerine PRN - morphine 2 mg - Added Metoprolol 12.5 mg - given Potassium PPI: PPX: None DVT PPX: Ambulatory Goals of care discussed with patient for 23 minutes: Full code Case discussed with Plan discussed with: Patient My Orders My Orders Orders - YONATHAN AZEVEDO RESIDENT Procedure Category Date Status Time Cardiac DIET 02/23/25 Transmitted Diet-2gna,Lofat,Lochol Dinner Furosemide Injection PHA 02/25/25 In Process (Lasix Injection) 10:00 Hydrocodone-Acet PHA 02/24/25 In Process 5/325mg Tab ([place] 13:00 Date of Service: Feb 24, 2025 Billing Provider: GEORGE RINCON Common Visit Codes: [id number] INP/OBS CARE(HIGH) YONATHAN AZEVEDO RESIDENT Feb 24, 2025 17:06 ANGELES WINTERS DO Feb 26, 2025 09:44
[2025-02-24] MEDS: LORazepam 2MG/ML-1ML VIAL IV ONE (18:09)
[2025-02-24] MEDS: FUROSEMIDE 40 MG/4 ML VIAL IV ONE (18:10)
--- NOTE | 2025-02-24 18:58 | ECG ---
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
--- NOTE | 2025-02-24 18:59 | ECG ---
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
[2025-02-24] MEDS: METOPROLOL TARTRATE 25 MG TAB PO SCH (20:49)
[2025-02-24] MEDS: MELATONIN 5 MG TAB PO ONE (22:08)
[2025-02-25] VITALS (11 sets, daily range): BP systolic 112–150; BP diastolic 70–83; PULSE 65–92; RESP 16–22; TEMP 97.7–98.3; O2SAT 91–100
[2025-02-25] MEDS ORDERED: ALBUAER3 IN (02:50)
[2025-02-25 07:13] LABS: Hematocrit 42.2 % (36.0-46.0); Hemoglobin 13.4 g/dL (12.2-16.2); Mean Corpuscular Hemoglobin 25.1 pg (28.0-32.0); Mean Corpuscular Volume 79.0 fL (80.0-100.0); Nucleated Red Blood Cells % 0.0 %
[2025-02-25 07:18] LABS: Chloride 100 mmol/L (98-107); Potassium 3.6 mmol/L (3.5-5.1); Sodium 141 mmol/L (136-145)
[2025-02-25 07:19] LABS: Anion Gap 9 (5-15)
[2025-02-25 07:20] LABS: Calcium 10.1 mg/dL (8.7-10.4)
[2025-02-25 07:24] LABS: BUN/Creatinine Ratio 24.1 (10.0-20.0); Blood Urea Nitrogen 13 mg/dL (9-23); Glucose 89 mg/dL (74-106)
[2025-02-25 07:27] LABS: Carbon Dioxide 32 mmol/L (20-31)
[2025-02-25] MEDS: FUROSEMIDE 40 MG/4 ML VIAL IV SCH (10:00)
[2025-02-25] MEDS: ALPRAZolam 0.5 MG TAB PO PRN (12:54)
--- NOTE | 2025-02-25 13:35 | DVHINCON2 ---
Date Seen: Feb 25, 2025 Referring Physician MD Bora Reason for Consultation Rule out ACS History of Present Illness 60-year-old female presents to the emergency department with one week history of intermittent chest pressure and tightness, which has worsened over the past two days. She describes the chest discomfort as maternal in nature and is accompanied by numbness and tingling sensations in both upper extremities, including the hands and fingers. She also reports a subjective sensation of poor circulation, followed by episodes of chest pressure, shortness of breath, and elevated blood pressure. The patient denies syncope or palpitations. She reports undergoing a stress test approximately five six years ago, which was reportedly normal. In the ED, a 12 lead ECG revealed sinus rhythm with nonspecific T-wave abnormalities. Serial troponins and BNP were negative. Significant past medical history of hypertension, diabetes, CHF, arthritis, anxiety, and obesity. Past Medical History As stated in HPI Past Surgical History Denies Family History Reviewed, non-contributory to the management of this case. Social History The patient lives at home, denies smoking, alcohol or illicit drugs abuse. Allergies: Coded Allergies: NO KNOWN ALLERGIES (Unverified , 05/15/12) Home Meds Active Scripts Cephalexin Monohydrate (Cephalexin) 500 Mg Cap, 1 CAP PO BID for 7 Days, #14 CAP 0 Refills Prov:DRE MATHEW 05/16/24 Ondansetron Odt 4MG Tab (ZOFRAN PO) 4 Mg Tb, 1 TAB PO Q8HPRN PRN, #10 TAB ODT TAB-DISSOLVE IN MOUTH, THEN SWALLOW as needed for nausea vomiting Prov:PRIMO FORRESTER Q COMMERCIAL CARPET INSTALLER 07/02/23 Ciskqunvme-Fqxbcstxuuxvf-Lanrp (FIORICET) Cap, 1 CAP OR Q6HPRN PRN, #10 CAP as needed for headache Prov:FORRESTERJOBALDA Q COMMERCIAL CARPET INSTALLER 07/02/23 Cephalexin Monohydrate (Cephalexin) 500 Mg Cap, 1 CAP PO QID for 10 Days, #40 CAP Prov:BETHANY FORRESTERA Q COMMERCIAL CARPET INSTALLER 07/02/23 Ondansetron (Zofran) 4 Mg Tab, 1 TAB PO Q6HR PRN, #12 TAB 0 Refills Prov:CRISTINA CHAPPELL 11/17/22 Acetaminophen (Tylenol) 325 Mg Cap, 325 MG PO Q4HPRN PRN, #30 CAP 0 Refills Take 1-2 caps po q4h prn for pain/fever (Do not exceed 3,000mg of acetaminophen in 24 hours) Prov:CRISTINA CHAPPELL AIR COMPRESSOR OPERATOR 11/17/22 Cephalexin ( Keflex 500) 500 Mg Cap, 1 CAP PO QID for 7 Days, #28 CAP 0 Refills Prov:CRISTINA CHAPPELL [facility] 11/17/22 Reported Medications Albuterol Sulfate (VENTOLIN MDI) 90 Mcg Ih, 90 MCG IN for "chest tightness", INH 02/25/25 Zolpidem Tartrate (Ambien) 5 Mg Tab, 5 MG PO QHS 05/15/12 Hydrocodone-Acetaminophen ([place] 10/325MG) 1 Tab Tb, 10 MG PO DAILY 05/15/12 Carisoprodol (Soma) 250 Mg Tab, 250 MG PO DAILY 05/15/12 Atenolol (Atenolol) 25 Mg Tab, 25 MG PO DAILY 05/15/12 Current Medications Current Medications Medications (Trade) Dose Ordered Sig/Idalmis Route PRN Reason Start Time Stop Time Status Last Admin Furosemide (Lasix Injection) 40 mg DAILY IV 02/25/25 10:00 02/25/25 10:00 Metoprolol Tartrate (Lopressor Tablet) 12.5 mg BID PO 02/24/25 22:00 02/25/25 10:01 Alprazolam (Xanax Tablet) 1 mg BID PRN PO ANXIETY 02/25/25 12:30 02/25/25 12:54 Review of Systems Constitutional: No symptom reported Ears, Nose, & Throat: No symptom reported Eyes: No symptom reported Neurological: Numbness and tingling in hands/fingers Pulmonary/Respiratory: No symptom reported Cardiovascular: Intermittent chest pressure and upper extremity paresthesia. Denies palpitation or syncope Gastrointestinal: No symptom reported Genitourinary: No symptom reported Musculoskeletal: No symptom reported Skin: No symptom reported Psychiatric: No symptom reported Endocrine: No symptom reported Hemotologic/Lymphatic: No symptom reported Vital Signs Vital Signs Date Time Temp Pulse Resp B/P (MAP) Pulse Ox O2 Delivery O2 Flow Rate FiO2 02/25/25 11:01 75 130/68 02/25/25 09:32 97.9 18 100 97.9 02/24/25 20:00 Room Air* 0 21 Physical Exam INITIAL VITAL SIGNS: Reviewed by me GENERAL: Alert and interactive. No acute distress. HEAD: Head is normocephalic and atraumatic. EYES: EOMI, PERRL. No scleral icterus. No conjunctival injection. ENT: Moist mucous membranes. NECK: Supple, No masses, Full range of motion. RESPIRATORY: No tachypnea. Clear breath sounds bilaterally. No wheezing, rales, rhonchi. CV: Regular rate and rhythm. No murmurs, rubs, or gallops. No edema GI/: Active bowel sounds, soft, nondistended, nontender. No guarding. No rebound. No masses. No CVA tenderness. INTEGUMENTARY: Warm and dry. No obvious rashes. NEUROLOGIC: Alert and oriented. Face is symmetric. Speech is normal. Moves all extremities equally. Labs/Diagnostic Data Labs Test 02/25/25 05:28 02/25/25 05:16 02/24/25 05:27 02/23/25 16:40 Range/Units POC Glucose 100 70-106 mg/dl White Blood Count 7.3 4.4-10.8 10^3/uL Red Blood Count 5.34 H 4.0-5.20 10^6/uL Hemoglobin 13.4 12.2-16.2 g/dL Hematocrit 42.2 36.0-46.0 % Mean Corpuscular Volume 79.0 L 80.0-100.0 fL Mean Corpuscular Hemoglobin 25.1 L 28.0-32.0 pg Mean Corpuscular Hemoglobin Concent 31.8 L 32.0-36.0 g/dL Red Cell Distribution Width 16.9 H 11.8-14.3 % Platelet Count 241 140-450 10^3/uL Mean Platelet Volume 8.3 6.9-10.8 fL Neutrophils (%) (Auto) 61.7 37.0-80.0 % Lymphocytes (%) (Auto) 29.1 10.0-50.0 % Monocytes (%) (Auto) 7.7 0.0-12.0 % Eosinophils (%) (Auto) 1.1 0.0-7.0 % Basophils (%) (Auto) 0.4 0.0-2.0 % Neutrophils # (Auto) 4.5 1.6-8.6 10 ^3/uL Lymphocytes # (Auto) 2.1 0.4-5.4 10 ^3/uL Monocytes # (Auto) 0.6 0-1.3 10 ^3/uL Eosinophils # (Auto) 0.1 0-0.8 10 ^3/uL Basophils # (Auto) 0 0-0.2 10 ^3/uL Nucleated Red Blood Cells 0.0 % Sodium Level 141 136-145 mmol/L Potassium Level 3.6 3.5-5.1 mmol/L Chloride Level 100 98-107 mmol/L Carbon Dioxide Level 32 H 20-31 mmol/L Anion Gap 9 5-15 Blood Urea Nitrogen 13 9-23 mg/dL Creatinine 0.54 L 0.550-1.02 mg/dL Glomerular Filtration Rate Calc 107 >90 mL/min BUN/Creatinine Ratio 24.1 H 10.0-20.0 Serum Glucose 89 74-106 mg/dL Hemoglobin A1c 5.8 H <5.7 % A1C Calcium Level 10.1 8.7-10.4 mg/dL Magnesium Level 2.0 1.6-2.6 mg/dL Troponin I High Sensitivity 15 </=34 ng/L Triglycerides Level 78 < 150 mg/dL Cholesterol Level 118 < 200 mg/dL LDL Cholesterol 59 < 100 mg/dL HDL Cholesterol 46 40-59 mg/dL Urine Opiates Screen Neg NEGATIVE Urine Fentanyl Screen Neg NEGATIVE Urine Barbiturates Screen Neg NEGATIVE Urine Phencyclidine Screen Neg NEGATIVE Urine Amphetamines Screen Neg NEGATIVE Urine Benzodiazepines Screen Neg NEGATIVE Urine Cocaine Screen Neg NEGATIVE Urine Cannabinoids Screen Neg NEGATIVE Test 02/23/25 13:11 02/23/25 11:38 Range/Units Urine Color Yellow Yellow Urine Clarity Clear Clear Urine pH 5.5 5.0-9.0 Urine Specific [place] 1.037 H 1.001-1.035 Urine Protein Trace H Negative Urine Ketones Negative Negative Urine Blood Negative Negative /uL Urine Nitrite Negative Negative Urine Bilirubin Negative Negative Urine Urobilinogen Normal Negative mg/dL Urine Leukocyte Esterase Negative Negative /uL Urine RBC 2 0 - 4 /hpf Urine Microscopic WBC 3 0-5 /HPF Urine Squamous Epithelial Cells Few <5 /hpf Urine Bacteria None seen None Seen /hpf Urine Mucus Few None Seen Urine Glucose Normal Normal mg/dL Lactic Acid Level 1.0 0.4-2.0 mmol/L Total Bilirubin 0.7 0.2-1.0 mg/dL Aspartate Amino Transferase (AST) 16 13-40 U/L Alanine Aminotransferase (ALT) 10 7-40 U/L Alkaline Phosphatase 88 46-116 U/L B-Type Natriuretic Peptide 54.47 0-100 pg/mL Total Protein 7.2 5.7-8.2 g/dL Albumin 4.5 3.2-4.8 g/dL Thyroid Stimulating Hormone (TSH) 0.94 0.55-4.78 uIU/mL PROCEDURE(s): CXRP - CHEST PORTABLE REASON: CP ORDER NUMBER(s): [id number], ACCESSION NUMBER(s): [id number] CHEST RADIOGRAPH Indication: CP Technique: Single frontal view of the chest was obtained COMPARISON: None FINDINGS: Lines and Tubes: None Lungs: Increased interstitial prominence Pleura: No effusion. No pneumothorax. Cardiomediastinal contours: Cardiomegaly Bones: Unremarkable IMPRESSION: Mild pulmonary vascular congestion or viral pneumonia. Assessment Atypical chest pain ?CHF Uncontrolled hypertension Morbid obesity Anxiety Type 2 diabetes Plan/Recommendation (Dr. Lowery ): * Chest pain protocol * Risk stratification * FRANCIA score: 2 low intermediate risk * HEART score 4 moderate risk for MACE * Echocardiogram to evaluate left ventricular function, wall motion abnormalities, valvular disease, and overall structural assessment * Schedule for stress test * Intermediate HEART score * Atypical chest symptoms * Cardiovascular risk factors with hypertension, diabetes, CHF, obesity * Continue with medical therapy as indicated with beta prosper, statins, antihypertensives * Continue on telemetry monitoring This medical document was created using an electronic medical record system with voice recognition software and computerized dictation system. Although this document has been carefully reviewed, there might still be some phonetic and typographical errors. Occasional wrong-word or ``sound-alike substitutions may have occurred due to the inherent limitations of voice recognition software. These areas are purely typographical due to imperfections of the software programs and do not reflect any compromise in the patient's medical care. Please read the chart carefully and recognize, using context, where these substitutions have occurred. Plan discussed with: Patient Plan discussed with: Patient NYHA Physical activity limitations: Class2(Slight)fatigue,sob Date of Service: Feb 25, 2025 Billing Provider: SUN LOWERY Sr., MD Cardiology Common Codes: CONSULT ONLY Cardiology Consultation Codes: [id number] CONSULT <45MIN CRESENCIO GAN AIR COMPRESSOR OPERATOR Feb 25, 2025 13:34
--- NOTE | 2025-02-25 15:19 | DVHPNRES ---
Progress Note Date Seen: Feb 25, 2025 Resident Creating Document: HARJEET HOUSE RESIDENT Medical Necessity Reason Pt with a Central, PICC or Fol: No Subjective Review of Systems Patient is a 60-year-old female with past medical history of hypertension since 20 years, diabetes mellitus, CHF, arthritis. She came to the ED with ongoing 1 week history of pressure-like chest pain, with no radiation, 6/10 in intensity, intermittent, no aggravating factors, relieved by nitroglycerin. Patient complained of shortness of breath after walking a short distance, but denies any headaches, palpitations, nausea, vomiting, syncopal episodes, cough, fever, leg swelling. She also complained of tingling sensation in her hands and feet. Her blood pressure at home and it showed 180/110. She denied any recent travel, sick contacts. On evaluation the ED, patient was hypertensive, 12 lead EKG showed sinus rhythm with prolonged AR interval. Initial labs show CBC within normal range, sodium 141, potassium 3.4, creatinine 0.62, and troponins negative. Chest Xray shows lungs with increased interstitial prominence suggestive of mild pulmonary vascular congestion or viral pneumonia. She was admitted for further work up and monitoring. Patient seen at bedside. Patient states she feels well, has been tolerating diet, and ambulating around her room without difficulty. States she had some minor shortness of breath over night and was placed on a NC on 1L for a few minutes and it resolved. Vitals have remained stable. Follow up labs are within normal range. She was seen by cardiology who recommend a stress test be scheduled to due to intermediate HEART score, atypical chest pain, and cardiovascular risks. Additionally, they recommend her medical therapy with beta blockers, statins, and antihypertensives be continued. Results of echocardiogram are pending. We will continue to monitor. Objective vital signs Vital Sign Date Time Temp Pulse Resp B/P (MAP) Pulse Ox O2 Delivery O2 Flow Rate FiO2 02/25/25 12:30 98.2 65 19 130/77 (94) 96 98.2 02/24/25 20:00 Room Air* 0 21 Total Intake and Output 02/24/25 02/24/25 02/25/25 15:00 23:00 07:00 Intake Total 500 ml 300 ml Balance 500 ml 300 ml medications Current Medications Medications Dose Ordered Sig/Idalmis Route Start Time Stop Time Status Last Admin Dose Admin Nitroglycerin 0.4 mg Q5MINP PRN SL 02/23/25 16:45 Morphine Sulfate 2 mg Q30M PRN IV 02/23/25 16:45 Losartan Potassium 50 mg DAILY PO 02/24/25 10:00 02/25/25 10:01 50 MG Hydralazine HCl 10 mg Q6HP PRN IV 02/23/25 17:00 02/24/25 16:38 10 MG Diagnostic Test (Pha) 1 strip ACHS 02/23/25 22:00 02/25/25 11:30 1 STRIP Insulin Human Regular ACHS SC 02/23/25 22:00 02/24/25 20:47 3 UNITS Dextrose 50 ml UD PRN IV 02/23/25 21:00 Furosemide 40 mg DAILY IV 02/25/25 10:00 02/25/25 10:00 40 MG Acetaminophen/ Hydrocodone Bitart 1 tab Q6HPRN PRN PO 02/24/25 13:00 02/25/25 10:00 1 TAB Metoprolol Tartrate 12.5 mg BID PO 02/24/25 22:00 02/25/25 10:01 12.5 MG Alprazolam 1 mg BID PRN PO 02/25/25 12:30 02/25/25 12:54 1 MG Aspirin 81 mg DAILY PO 02/26/25 10:00 Examination General: Patient alert and oriented in person, place and time. Patient following commands. HEENT: Normocephalic, atraumatic, moist mucous membranes Respiratory/pulmonary: Clear lungs bilaterally, vesicular murmurs present in almost all lung lee, no associated crackles or wheezes. Cardiovascular: Normal heart sounds S1 and S2 with no associated murmurs Abdomen: Obese, Abdomen nondistended, normal bowel sounds, tympanic to percussion, there is no pain to palpation in any of the abdominal quadrants, no palpable masses. Obese Abdomen Extremities: There is no peripheral edema present at the lower extremities. Peripheral Pulses: 3+ Radial (R). 3+ Radial (L). 3+ Dorsalis pedis (R). 3+ Dorsalis pedis(L) Skin: No rashes or pruritus Neurological: Intact cranial nerves with no focal neurologic deficit laboratory and microbiology Laboratory Tests 02/25/25 05:16 Test 02/25/25 05:16 Range/Units Serum Glucose 89 74-106 mg/dL Problem List/Assessment/Plan Problem List/Assessment/Plan Assessment and Plan: Chest pain Rule out ACS -Aspirin 81 mg PO daily -Morphine 2 mg IV q30 min PRN -Nitroglycerin 0.4 mg SL q5 min PRN -Cardiology: recommend a stress test be scheduled to due to intermediate HEART score, atypical chest pain, and cardiovascular risks. Additionally, they recommend her medical therapy with beta blockers, statins, and antihypertensives be continued. -Stress test pending Hypertensive Urgency -Losartan 50 mg PO once -Hydralazine 10 mg IV q6 SBP > 150 Rule out Acute Systolic/Diastolic CHF, Pulmonary Edema? -Furosemide 40 mg IV daily -Chest x-ray shows Mild pulmonary vascular congestion or viral pneumonia. -Echocardiogram pending History of diabetes mellitus -SSI -Accu-checks -Carbohydrate consistent Obesity- BMI 34.2 Mild hypokalemia Case discussed with Dr. Winters. Goals of care discussed with the patient for over 20 minutes who states she understands and agrees. Plan discussed with: Patient Date of Service: Feb 25, 2025 Billing Provider: ANGELES WINTERS DO Common Visit Codes: [id number] INP/OBS CARE(HIGH) HARJEET HOUSE RESIDENT Feb 25, 2025 15:19 ANGELES WINTERS DO Feb 26, 2025 09:44
--- NOTE | 2025-02-25 15:51 | DVHSR ---
APPROVED REPORT EXAM: Two-dimensional and M-mode echocardiogram with Doppler and color Doppler. Blood Pressure: 135/90 mmHg INDICATION Chest Pain RISK FACTORS Obesity: Height: 5'7", Weight: 300 DIMENSIONS LVDd5.6 (3.8-5.7cm)LA (2D)3.6 (1.9-4.0cm)Aortic Root3.7 (2.0-3.7cm) LVDs4.2 (2.5-4.0cm)LA (MM) (1.9-4.0cm)Aortic Cusp Exc1.2 (1.5-2.0cm) EF (%) 49.0 (55-70%)Rt. Atrium3.3 (1.9-4.0cm)Asc. Aorta cm IVSd1.2 (0.7-1.1cm)RV (D) (1.8-2.4cm) PWd1.3 (0.7-1.1cm) Mitral Valve MitralMitral Stenosis E wave0.76m/sMV Mean GR.mmHg A wave1.04m/sMV Peak GR.mmHg E/A ratio0.72D MVAcm2 DECEL [id number] 1/2 Timems Aortic Valve Aortic ValveAortic Stenosis V10.86m/Kaylee Mean GR.6mmHg V21.77m/Kaylee Peak GR.12mmHg LVOT Diameter2.4 (1.8-2.4cm)Doppler AVA2.20cm2 Pulmonic Valve V20.91m/s Other Information Technically limited study due to body habitus, patient sitting up. Conclusion Technically good study. Sinus rhythm. Left atrial enlargement with concentric LVH Mild mitral annular calcification. Mild aortic sclerosis. EF of 50% with mild anterior hypokinesis. No pericardial effusion masses or vegetations.
[2025-02-25] MEDS: MELATONIN 5 MG TAB PO ONE (21:21)
[2025-02-26] VITALS (9 sets, daily range): BP systolic 122–160; BP diastolic 69–98; PULSE 67–96; RESP 17–18; TEMP 97.3–98.2; O2SAT 95–100
--- NOTE | 2025-02-26 07:35 | ECG ---
[facility] Test Date: 2025-02-24 Test Time: 18:11:46 Pat Name: JORI WELCH Department: Respiratoy Room: 0240T B Gender: F Metal Finish Inspector: THAD : 1965 Requested By: HALIE XIE Order Number: [id number] Reading MD: Ganga Avila Measurements Intervals [place] Rate: 95 P: 50 ID: [id number] QRS: 11 QRSD: 99 T: 90 QT: 381 QTc: 479 Interpretive Statements Sinus rhythm Probable left atrial enlargement Consider anterior infarct Electronically Signed On 02-28-2025 13:52:25 PDT by Ganga Avila Please click the below link to view image of tracing.
--- NOTE | 2025-02-26 07:35 | ECG ---
[facility] Test Date: 2025-02-24 Test Time: 20:21:51 Pat Name: JORI WELCH Department: Respiratoy Room: 0240T B Gender: F Migration Agent: ALEXA : 1965 Requested By: CRESENCIO GAN Order Number: [id number] Reading MD: Ganga Avila Measurements Intervals [place] Rate: 114 P: 77 CO: 185 QRS: 76 QRSD: 89 T: 102 QT: 337 QTc: 465 Interpretive Statements Sinus tachycardia Nonspecific T abnormalities, lateral leads Baseline wander in lead(s) V1 Electronically Signed On 02-28-2025 13:52:30 PDT by Ganga Avila Please click the below link to view image of tracing.
[2025-02-26] MEDS: REGADENOSON 0.4 MG/5 ML SYRG IV ONE ×2 (09:23→09:29)
[2025-02-26] MEDS: EMPAGLIFLOZIN 10 MG TAB PO SCH (15:50)
--- NOTE | 2025-02-26 16:16 | DVHSR ---
APPROVED REPORT Exam: Nuclear Stress Test Indication: r/o CAD BMI: 0 Medical History Medical History: HTN, DM, CHF, ARTHRITIS, ANXIETY, OBESITY, EF 50% Stress Test Details Stress Test: Pharmacologic stress testing performed using 0.4 mg of regadenoson per 5 mL given IV ov er 10 seconds. HR Resting HR: 83 bpmMax Heart Rate (APMHR): 162.037481 bpm Max HR Achieved: 109 bpmTarget HR (85% APMHR): 137.810639 bpm % of APMHR: 67.28 Recovery HR: 96 bpm BP Resting BP: 128/61 mmHg Recovery BP: 128/74 mmHg ECG Resting ECG: NSR w/ nonspecific t wave abnormalities Clinical Reason for Termination: Completed protocol Stress ECG Conclusion lvef 47% mild lateral wall defect noted, fixed with reversible ischemia visual TID appears, this can be seen with multivessel cad abnormal spect NM EXAM: Myocardial Perfusion REST/STRESS Imaging Protocol: Rest Tc-99m/Stress Tc-99m 1 day Resting Data Rest SPECT myocardial perfusion imaging was performed in supine position 60 minutes following the int ravenous injection of 10.9 mCi of Tc-99m Sestamibi. Time of rest injection: 07:40 Date: 02/26/2025 Time of rest imagin:40 Date: 02/26/2025 Administration Route: IV Administration Site: Right Hand Pharmacologic Stress Pharmacologic stress test was performed by injecting Regadenoson 0.4 mg IV push followed by the intra venous injection of 33.0 mCi of Tc-99m Sestamibi. Time of stress injection: 09:29 Date: 02/26/2025 Time of stress imagin:29 Date: 02/26/2025 Administration Route: IV Administration Site: Right Hand Gated Stress SPECT was performed 60 minutes after stress injection. The images were gated to evaluate regional wall motion and calculate left ventricular ejection fracti on. Stress only was performed in the Supine position. Nuclear Conclusion lvef 47% mild lateral wall defect noted, fixed with reversible ischemia visual TID appears, this can be seen with multivessel cad abnormal spect
--- NOTE | 2025-02-26 17:33 | DVHPNRES ---
Progress Note Date Seen: Feb 26, 2025 Resident Creating Document: YONATHAN AZEVEDO RESIDENT Medical Necessity Reason Pt with a Central, PICC or Fol: No Subjective Review of Systems Patient is a 60-year-old female with past medical history of hypertension since 20 years, diabetes mellitus, CHF, arthritis. She came to the ED with ongoing 1 week history of pressure-like chest pain, with no radiation, 6/10 in intensity, intermittent, no aggravating factors, relieved by nitroglycerin. Patient complained of shortness of breath after walking a short distance, but denies any headaches, palpitations, nausea, vomiting, syncopal episodes, cough, fever, leg swelling. She also complained of tingling sensation in her hands and feet. Her blood pressure at home and it showed 180/110. She denied any recent travel, sick contacts. On evaluation the ED, patient was hypertensive, 12 lead EKG showed sinus rhythm with prolonged AR interval. Initial labs show CBC within normal range, sodium 141, potassium 3.4, creatinine 0.62, and troponins negative. Chest Xray shows lungs with increased interstitial prominence suggestive of mild pulmonary vascular congestion or viral pneumonia. She was admitted for further work up and monitoring. Patient seen at bedside. The patient appears comfortable, alert x3, on room a ir, echo cardiogram was done and shows EF of 50%, today cardiac stress test was done and shows lvef 47%, mild lateral wall defect noted, fixed with reversible ischemia, visual TID appears, this can be seen with multivessel cad, abnormal spect. Consulted Cardiology on possible catheterization. Objective vital signs Vital Sign Date Time Temp Pulse Resp B/P (MAP) Pulse Ox O2 Delivery O2 Flow Rate FiO2 02/26/25 17:14 97.7 96 18 122/82 (95) 98 97.7 02/26/25 08:00 Room Air* 0 21 Total Intake and Output 02/25/25 02/25/25 02/26/25 15:00 23:00 07:00 Intake Total 820 ml 500 ml Output Total 700 ml Balance 820 ml -200 ml medications Current Medications Medications Dose Ordered Sig/Idalmis Route Start Time Stop Time Status Last Admin Dose Admin Nitroglycerin 0.4 mg Q5MINP PRN SL 02/23/25 16:45 Morphine Sulfate 2 mg Q30M PRN IV 02/23/25 16:45 Losartan Potassium 50 mg DAILY PO 02/24/25 10:00 02/25/25 10:01 50 MG Hydralazine HCl 10 mg Q6HP PRN IV 02/23/25 17:00 02/24/25 16:38 10 MG Diagnostic Test (Pha) 1 strip ACHS 02/23/25 22:00 02/26/25 16:45 1 STRIP Insulin Human Regular ACHS SC 02/23/25 22:00 02/26/25 12:44 2 UNITS Dextrose 50 ml UD PRN IV 02/23/25 21:00 Furosemide 40 mg DAILY IV 02/25/25 10:00 02/26/25 12:38 40 MG Acetaminophen/ Hydrocodone Bitart 1 tab Q6HPRN PRN PO 02/24/25 13:00 02/26/25 16:00 1 TAB Metoprolol Tartrate 12.5 mg BID PO 02/24/25 22:00 02/25/25 21:21 12.5 MG Alprazolam 1 mg BID PRN PO 02/25/25 12:30 02/26/25 12:38 1 MG Aspirin 81 mg DAILY PO 02/26/25 10:00 Empaglifozin 10 mg DAILY PO 02/26/25 13:45 02/26/25 15:50 10 MG Atorvastatin Calcium 20 mg HS PO 02/26/25 22:00 Examination General: Patient alert and oriented in person, place and time. Patient following commands. HEENT: Normocephalic, atraumatic, moist mucous membranes Respiratory/pulmonary: Clear lungs bilaterally, vesicular murmurs present in almost all lung lee, no associated crackles or wheezes. Cardiovascular: Normal heart sounds S1 and S2 with no associated murmurs Abdomen: Abdomen nondistended, there is no pain to palpation in any of the abdominal quadrants, no palpable masses. Extremities: There is no peripheral edema present at the lower extremities. Peripheral Pulses: 3+ Radial (R). 3+ Radial (L). 3+ Dorsalis pedis (R). 3+ Dorsalis pedis(L) Skin: No rashes or pruritus, there is no sacral edema present at this time. Neurological: Intact cranial nerves with no focal neurologic deficits laboratory and microbiology Laboratory Tests 02/25/25 05:16 Test 02/25/25 05:16 Range/Units Serum Glucose 89 74-106 mg/dL Problem List/Assessment/Plan Problem List/Assessment/Plan # Chest pain Ruled out ACS # Hypertensive Urgency - IV Furosemide 40 mg - IV hydralazine 10 mg q.6 prn - losartan 50 mg p.o. daily - nitroglycerine PRN - Added Metoprolol 12.5 mg - morphine 2 mg # HFmrEF -Echo shows EF 49% - Jardiance 10 mg and atorvastatin 20 mg started - stress test shows lvef 47%, mild lateral wall defect noted, fixed with reversible ischemia, visual TID appears, this can be seen with multivessel cad, abnormal spect. - consulted for possible catheterization # History of diabetes mellitus: Hba1c- 5.8 # Pulmonary Edema - chest x-ray shows Mild pulmonary vascular congestion or viral pneumonia. # obesity- BMI 34.2 # mild hypokalemia - given Potassium PPI: PPX: None DVT PPX: Ambulatory Goals of care discussed with patient for 23 minutes: Full code Case discussed with Plan discussed with: Patient Date of Service: Feb 26, 2025 Billing Provider: COURTNEY BORREGO MD Common Visit Codes: [id number] INP/OBS CARE(HIGH) YONATHAN AZEVEDO RESIDENT Feb 26, 2025 17:33 COURTNEY BORREGO MD Feb 28, 2025 01:58
[2025-02-26] MEDS: MELATONIN 5 MG TAB PO ONE (21:28)
[2025-02-26] MEDS: ATORVASTATIN 20 MG TAB PO SCH (21:29)
[2025-02-27] VITALS (8 sets, daily range): BP systolic 112–151; BP diastolic 69–93; PULSE 69–99; RESP 18–19; TEMP 97.7–98.6; O2SAT 95–98
[2025-02-27 06:50] LABS: Calcium 10.2 mg/dL (8.7-10.4); Chloride 100 mmol/L (98-107); Potassium 4.4 mmol/L (3.5-5.1); Sodium 139 mmol/L (136-145)
[2025-02-27 06:51] LABS: Anion Gap 7 (5-15); Hematocrit 42.7 % (36.0-46.0); Hemoglobin 13.9 g/dL (12.2-16.2); Mean Corpuscular Hemoglobin 25.8 pg (28.0-32.0); Mean Corpuscular Volume 79.1 fL (80.0-100.0); Nucleated Red Blood Cells % 0.1 %
[2025-02-27 06:56] LABS: BUN/Creatinine Ratio 19.2 (10.0-20.0); Blood Urea Nitrogen 14 mg/dL (9-23); Glucose 103 mg/dL (74-106)
[2025-02-27 06:57] LABS: Carbon Dioxide 32 mmol/L (20-31)
[2025-02-27 09:54] LABS: INR 0.98 (0.9-1.15); Partial Thromboplastin Time 27.1 SEC (24.5-34.5); Prothrombin Time 10.4 sec (9.3-11.8)
[2025-02-27] MEDS: OXYCODONE W/ ACETAMINOPHEN 5/325MG TABLET PO PRN (12:12)
--- NOTE | 2025-02-27 14:19 | DVHPN2 ---
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 Objective vital signs Vital Sign Date Time Temp Pulse Resp B/P (MAP) Pulse Ox O2 Delivery O2 Flow Rate FiO2 02/27/25 10:28 74 107/64 02/27/25 08:56 98.3 18 98 98.3 02/27/25 08:00 Room Air* 0 21 Total Intake and Output 02/26/25 02/26/25 02/27/25 15:00 23:00 07:00 Intake Total 800 ml 900 ml Balance 800 ml 900 ml medications Current Medications Medications Dose Ordered Sig/Idalmis Route Start Time Stop Time Status Last Admin Dose Admin Nitroglycerin 0.4 mg Q5MINP PRN SL 02/23/25 16:45 Morphine Sulfate 2 mg Q30M PRN IV 02/23/25 16:45 Losartan Potassium 50 mg DAILY PO 02/24/25 10:00 02/27/25 09:28 50 MG Hydralazine HCl 10 mg Q6HP PRN IV 02/23/25 17:00 02/24/25 16:38 10 MG Diagnostic Test (Pha) 1 strip ACHS 02/23/25 22:00 02/27/25 11:43 1 STRIP Insulin Human Regular ACHS SC 02/23/25 22:00 02/26/25 12:44 2 UNITS Dextrose 50 ml UD PRN IV 02/23/25 21:00 Furosemide 40 mg DAILY IV 02/25/25 10:00 02/27/25 09:29 40 MG Acetaminophen/ Hydrocodone Bitart 1 tab Q6HPRN PRN PO 02/24/25 13:00 Hold 02/26/25 16:00 1 TAB Metoprolol Tartrate 12.5 mg BID PO 02/24/25 22:00 02/27/25 09:28 12.5 MG Alprazolam 1 mg BID PRN PO 02/25/25 12:30 02/27/25 09:28 1 MG Aspirin 81 mg DAILY PO 02/26/25 10:00 02/27/25 09:28 81 MG Empaglifozin 10 mg DAILY PO 02/26/25 13:45 02/27/25 09:28 10 MG Atorvastatin Calcium 20 mg HS PO 02/26/25 22:00 02/26/25 21:29 20 MG Oxycodone/ Acetaminophen 2 tab Q6HP PRN PO 02/27/25 11:30 02/27/25 12:12 2 TAB Examination: GENERAL:Normal, LUNGS:Normal, CVS:Normal, NEURO:Normal laboratory and microbiology Laboratory Tests 02/27/25 05:55 Test 02/27/25 05:55 Range/Units Serum Glucose 103 74-106 mg/dL Problem List/Assessment/Plan Problem List/Assessment/Plan Chest pain, rule out coronary artery disease Chronic HFpEF, NYHA class II Hypertension Type 2 diabetes mellitus Morbid obesity Plan/recommendations (Dr. Avila): Transthoracic echocardiogram reveals an EF of 50% with mild anterior hypokinesis. The patient underwent a nuclear stress test which revealed mild lateral wall defect with fixed reversible ischemia. Nuclear stress test not fully conclusive. Case discussed with . Given patient's clinical presentation, the patient was offered a coronary angiogram with left heart catheterization. The procedure was discussed with the patient in full detail including risks and benefits. Risks include but are not limited to bleeding, contrast-induced nephropathy, coronary dissection, stroke, and even . The patient understands and is agreeable to undergo the procedure. We will schedule the patient at soonest availability on 02/28/2025. Thank you for allowing us to care for this patient. Please call with any questions or concerns. This medical document was created using an electronic medical record system with voice recognition software and computerized dictation system. Although this document has been carefully reviewed, there might still be some phonetic and typographical errors. Occasional wrong-word or ``sound-alike substitutions may have occurred due to the inherent limitations of voice recognition software. These areas are purely typographical due to imperfections of the software programs and do not reflect any compromise in the patient's medical care. Please read the chart carefully and recognize, using context, where these substitutions have occurred. Plan discussed with: Patient Date of Service: Feb 27, 2025 Billing Provider: DOUGLAS WORTHINGTON Common Visit Codes: [id number] INP/OBS CARE(HIGH) DOUGLAS WORTHINGTON Feb 27, 2025 14:19
--- NOTE | 2025-02-27 16:39 | DVHPNRES ---
Progress Note Date Seen: Feb 27, 2025 Resident Creating Document: YONATHAN AZEVEDO RESIDENT Medical Necessity Reason Pt with a Central, PICC or Fol: No Subjective Review of Systems Patient is a 60-year-old female with past medical history of hypertension since 20 years, diabetes mellitus, CHF, arthritis. She came to the ED with ongoing 1 week history of pressure-like chest pain, with no radiation, 6/10 in intensity, intermittent, no aggravating factors, relieved by nitroglycerin. Patient complained of shortness of breath after walking a short distance, but denies any headaches, palpitations, nausea, vomiting, syncopal episodes, cough, fever, leg swelling. She also complained of tingling sensation in her hands and feet. Her blood pressure at home and it showed 180/110. She denied any recent travel, sick contacts. On evaluation the ED, patient was hypertensive, 12 lead EKG showed sinus rhythm with prolonged MN interval. Initial labs show CBC within normal range, sodium 141, potassium 3.4, creatinine 0.62, and troponins negative. Chest Xray shows lungs with increased interstitial prominence suggestive of mild pulmonary vascular congestion or viral pneumonia. She was admitted for further work up and monitoring. Patient is seen at bedside. She is alert x3, comfortable, she denies any chest pain, shortness of breath, or any new symptoms. No overnight events were recorded. patient underwent a nuclear stress test which revealed mild lateral wall defect with fixed reversible ischemia. Cardiology was consulted and recommended left heart catheterization for tomorrow. Objective vital signs Vital Sign Date Time Temp Pulse Resp B/P (MAP) Pulse Ox O2 Delivery O2 Flow Rate FiO2 02/27/25 13:00 98.1 96 18 112/69 (83) 98 98.1 02/27/25 08:00 Room Air* 0 21 Total Intake and Output 02/26/25 02/26/25 02/27/25 15:00 23:00 07:00 Intake Total 800 ml 900 ml Balance 800 ml 900 ml medications Current Medications Medications Dose Ordered Sig/Idalmis Route Start Time Stop Time Status Last Admin Dose Admin Nitroglycerin 0.4 mg Q5MINP PRN SL 02/23/25 16:45 Morphine Sulfate 2 mg Q30M PRN IV 02/23/25 16:45 Losartan Potassium 50 mg DAILY PO 02/24/25 10:00 02/27/25 09:28 50 MG Hydralazine HCl 10 mg Q6HP PRN IV 02/23/25 17:00 02/24/25 16:38 10 MG Diagnostic Test (Pha) 1 strip ACHS 02/23/25 22:00 02/27/25 11:43 1 STRIP Insulin Human Regular ACHS SC 02/23/25 22:00 02/26/25 12:44 2 UNITS Dextrose 50 ml UD PRN IV 02/23/25 21:00 Furosemide 40 mg DAILY IV 02/25/25 10:00 02/27/25 09:29 40 MG Acetaminophen/ Hydrocodone Bitart 1 tab Q6HPRN PRN PO 02/24/25 13:00 Hold 02/26/25 16:00 1 TAB Metoprolol Tartrate 12.5 mg BID PO 02/24/25 22:00 02/27/25 09:28 12.5 MG Aspirin 81 mg DAILY PO 02/26/25 10:00 02/27/25 09:28 81 MG Empaglifozin 10 mg DAILY PO 02/26/25 13:45 02/27/25 09:28 10 MG Atorvastatin Calcium 20 mg HS PO 02/26/25 22:00 02/26/25 21:29 20 MG Oxycodone/ Acetaminophen 2 tab Q6HP PRN PO 02/27/25 11:30 02/27/25 12:12 2 TAB Examination General: Patient alert and oriented in person, place and time. Patient following commands. HEENT: Normocephalic, atraumatic, moist mucous membranes Respiratory/pulmonary: Clear lungs bilaterally, vesicular murmurs present in almost all lung lee, no associated crackles or wheezes. Cardiovascular: Normal heart sounds S1 and S2 with no associated murmurs Abdomen: Abdomen nondistended, there is no pain to palpation in any of the abdominal quadrants, no palpable masses. Extremities: There is no peripheral edema present at the lower extremities. Peripheral Pulses: 3+ Radial (R). 3+ Radial (L). 3+ Dorsalis pedis (R). 3+ Dorsalis pedis(L) Skin: No rashes or pruritus, there is no sacral edema present at this time. Neurological: Intact cranial nerves with no focal neurologic deficits laboratory and microbiology Laboratory Tests 02/27/25 05:55 Test 02/27/25 05:55 Range/Units Serum Glucose 103 74-106 mg/dL Problem List/Assessment/Plan Problem List/Assessment/Plan # Chest pain Ruled out ACS # Hypertensive Urgency - IV Furosemide 40 mg - IV hydralazine 10 mg q.6 prn - losartan 50 mg p.o. daily - nitroglycerine PRN - Added Metoprolol 12.5 mg - morphine 2 mg # HFmrEF -Echo shows EF 49% - Jardiance 10 mg and atorvastatin 20 mg started - stress test shows lvef 47%, mild lateral wall defect noted, fixed with reversible ischemia, visual TID appears, this can be seen with multivessel cad, abnormal spect. - consulted and recommended left heart catheterization for tomorrow # History of diabetes mellitus: Hba1c- 5.8 # Pulmonary Edema - chest x-ray shows Mild pulmonary vascular congestion or viral pneumonia. # obesity- BMI 34.2 # mild hypokalemia - given Potassium PPI: PPX: None DVT PPX: Ambulatory Goals of care discussed with patient for 23 minutes: Full code Case discussed with Plan discussed with: Patient My Orders My Orders Orders - YONATHAN AZEVEDO Procedure Category Date Status Time Lorazepam 2mg/Ml Inj PHA 02/27/25 Logged (Ativan Inj) 17:00 [facility]ary Evaluation Review Comments[facility] PO intake to emet 75% of her needs Expected Outcomes/Goals: Controlled DM, gradual wt loss Date of Service: Feb 27, 2025 Billing Provider: COURTNEY BORREGO MD Common Visit Codes: [id number] INP/OBS CARE(HIGH) YONATHAN AZEVEDO Feb 27, 2025 16:39 COURTNEY BORREGO MD Feb 28, 2025 02:00
[2025-02-27] MEDS: LORazepam 2MG/ML-1ML VIAL IV ONE (17:44)
[2025-02-27] MEDS: MELATONIN 5 MG TAB PO SCH (22:00)
[2025-02-28] VITALS (11 sets, daily range): BP systolic 130–159; BP diastolic 65–91; PULSE 60–94; RESP 12–18; TEMP 97.6–98.4; O2SAT 92–100
[2025-02-28 06:03] LABS: Hematocrit 41.5 % (36.0-46.0); Hemoglobin 13.4 g/dL (12.2-16.2); Mean Corpuscular Hemoglobin 25.6 pg (28.0-32.0); Mean Corpuscular Volume 79.0 fL (80.0-100.0); Nucleated Red Blood Cells % 0.2 %
[2025-02-28 06:14] LABS: Chloride 98 mmol/L (98-107); Potassium 3.8 mmol/L (3.5-5.1); Sodium 137 mmol/L (136-145)
[2025-02-28 06:15] LABS: Anion Gap 7 (5-15)
[2025-02-28 06:16] LABS: Calcium 9.5 mg/dL (8.7-10.4)
[2025-02-28 06:19] LABS: Carbon Dioxide 32 mmol/L (20-31)
[2025-02-28 06:21] LABS: BUN/Creatinine Ratio 23.3 (10.0-20.0); Blood Urea Nitrogen 14 mg/dL (9-23); Glucose 100 mg/dL (74-106)
[2025-02-28] MEDS: ANGIOMAX 250 MG VIAL IV ONE (12:04)
[2025-02-28] MEDS: VERAPAMIL 2.5MG/ML INJ 2ML VIAL IV ONE (12:04)
[2025-02-28] MEDS: MIDAZOLAM HCL 2MG/2ML 2ml VIAL (1mg/ml) ONE ×2 (12:05→13:23)
[2025-02-28] MEDS: fentaNYL CITRATE 100 MCG/2 ML VL ONE (12:05)
[2025-02-28] MEDS: LIDOCAINE 2%HCL (LOCAL ANESTH.) INJ 20ML MDV ONE (12:05)
[2025-02-28] MEDS: SODIUM CHL 0.9% 0 ML ONE (12:05)
[2025-02-28] MEDS: HEPARIN SODIUM (PORCINE) 5000 UNITS/ML 1ML VIAL ONE (12:06)
[2025-02-28] MEDS: HYDROmorphone HCL 2 MG/ML VL/or syr ONE (13:23)
--- NOTE | 2025-02-28 13:35 | DVHOP2 ---
Operative Report - 2 Report Details Date: 02/28/25 Preop Diagnosis: CAD Postop Diagnosis: Normal coronaries Surgeon: Sun Avila MD Anesthesiologist: Conscious sedation Anesthesia: Mac, Local Consent: The patient was informed of the risks and benefits of the procedure. These include but are not limited to complications of anesthesia, postoperative infection, incomplete relief of symptoms, recurrence of symptoms, damage to blood vessels, nerves and tendons, deep venous thrombosis, pulmonary embolism and possible need for repeat surgery in the future. Complications: No complications Findings: Normal coronaries. Normal LV function. Normal end-diastolic pressures. Indications for Surgery: Chest pain Name of Procedure Performed Left heart catheterization. Bilateral cine coronary angiography. Left ventriculography Procedure Details Procedure Details: Prior local anesthesia with 2% lidocaine to the right wrist and full informed consent obtained patient was prepped and draped in the usual fashion followed by placement of six [place] sheath in the right radial artery through which six Vignesh [facility] multipurpose catheter was used to cannulate both right left coronary ostium and a six [place] Multipurpose catheter was used for ventriculography. Patient tolerated the procedure well there were no complications. Coronary anatomy: The RCA is a large vessel with no stenosis in its proximal mid or distal segments. The PDA and posterolateral branches are normal. Left main is large and normal.. Left anterior descending is normal two diagonals free of significant disease. Circumflex is large with two marginals free of significant disease. Ventriculography in the PRYOR projection shows an EF of 60%. Impression: Normal left ventricular end-diastolic pressure at rest. Normal ejection fraction. No significant CAD. Recommendations: Medical therapy is warranted continue risk factor modification. Disposition Still a Patient Date of Service: Feb 28, 2025 Billing Provider: SUN AVILA Sr., MD Cardiology Common Codes: [id number] INP/OBS CARE (High) Cardiology Procedure Codes: [id number] HEART CATH W/INTRA INJ SUN AVILA Sr., MD Feb 28, 2025 13:35
--- NOTE | 2025-02-28 17:31 | DVHDSRES ---
Discharge Summary Date of Admission Resident Creating Document: YONATHAN AZEVEDO Feb 23, 2025 at 16:37 Date of Discharge: Feb 28, 2025 Admitting Diagnosis Hypertensive urgency Labs/Diagnostic Data: Laboratory Results Test 02/28/25 17:03 02/28/25 05:13 02/27/25 09:05 02/25/25 05:16 POC Glucose 129 mg/dl (70-106) White Blood Count 7.1 10^3/uL (4.4-10.8) Red Blood Count 5.25 10^6/uL (4.0-5.20) Hemoglobin 13.4 g/dL (12.2-16.2) Hematocrit 41.5 % (36.0-46.0) Mean Corpuscular Volume 79.0 fL (80.0-100.0) Mean Corpuscular Hemoglobin 25.6 pg (28.0-32.0) Mean Corpuscular Hemoglobin Concent 32.4 g/dL (32.0-36.0) Red Cell Distribution Width 17.0 % (11.8-14.3) Platelet Count 230 10^3/uL (140-450) Mean Platelet Volume 8.1 fL (6.9-10.8) Neutrophils (%) (Auto) 55.7 % (37.0-80.0) Lymphocytes (%) (Auto) 34.6 % (10.0-50.0) Monocytes (%) (Auto) 7.4 % (0.0-12.0) Eosinophils (%) (Auto) 1.9 % (0.0-7.0) Basophils (%) (Auto) 0.4 % (0.0-2.0) Neutrophils # (Auto) 4.0 10 ^3/uL (1.6-8.6) Lymphocytes # (Auto) 2.5 10 ^3/uL (0.4-5.4) Monocytes # (Auto) 0.5 10 ^3/uL (0-1.3) Eosinophils # (Auto) 0.1 10 ^3/uL (0-0.8) Basophils # (Auto) 0 10 ^3/uL (0-0.2) Nucleated Red Blood Cells 0.2 % Sodium Level 137 mmol/L (136-145) Potassium Level 3.8 mmol/L (3.5-5.1) Chloride Level 98 mmol/L (98-107) Carbon Dioxide Level 32 mmol/L (20-31) Anion Gap 7 (5-15) Blood Urea Nitrogen 14 mg/dL (9-23) Creatinine 0.60 mg/dL (0.550-1.02) Glomerular Filtration Rate Calc 104 mL/min (>90) BUN/Creatinine Ratio 23.3 (10.0-20.0) Serum Glucose 100 mg/dL (74-106) Calcium Level 9.5 mg/dL (8.7-10.4) Prothrombin Time 10.4 sec (9.3-11.8) Prothrombin Time INR 0.98 (0.9-1.15) Activated Partial Thromboplast Time 27.1 SEC (24.5-34.5) Hemoglobin A1c 5.8 % A1C (<5.7) Magnesium Level 2.0 mg/dL (1.6-2.6) Troponin I High Sensitivity 15 ng/L (</=34) Test 02/24/25 05:27 02/23/25 16:40 02/23/25 13:11 02/23/25 11:38 Triglycerides Level 78 mg/dL (< 150) Cholesterol Level 118 mg/dL (< 200) LDL Cholesterol 59 mg/dL (< 100) HDL Cholesterol 46 mg/dL (40-59) Urine Opiates Screen Neg (NEGATIVE) Urine Fentanyl Screen Neg (NEGATIVE) Urine Barbiturates Screen Neg (NEGATIVE) Urine Phencyclidine Screen Neg (NEGATIVE) Urine Amphetamines Screen Neg (NEGATIVE) Urine Benzodiazepines Screen Neg (NEGATIVE) Urine Cocaine Screen Neg (NEGATIVE) Urine Cannabinoids Screen Neg (NEGATIVE) Urine Color Yellow (Yellow) Urine Clarity Clear (Clear) Urine pH 5.5 (5.0-9.0) Urine Specific [place] 1.037 (1.001-1.035) Urine Protein Trace (Negative) Urine Ketones Negative (Negative) Urine Blood Negative /uL (Negative) Urine Nitrite Negative (Negative) Urine Bilirubin Negative (Negative) Urine Urobilinogen Normal mg/dL (Negative) Urine Leukocyte Esterase Negative /uL (Negative) Urine RBC 2 /hpf (0 - 4) Urine Microscopic WBC 3 /HPF (0-5) Urine Squamous Epithelial Cells Few /hpf (<5) Urine Bacteria None seen /hpf (None Seen) Urine Mucus Few (None Seen) Urine Glucose Normal mg/dL (Normal) Lactic Acid Level 1.0 mmol/L (0.4-2.0) Total Bilirubin 0.7 mg/dL (0.2-1.0) Aspartate Amino Transferase (AST) 16 U/L (13-40) Alanine Aminotransferase (ALT) 10 U/L (7-40) Alkaline Phosphatase 88 U/L (46-116) B-Type Natriuretic Peptide 54.47 pg/mL (0-100) Total Protein 7.2 g/dL (5.7-8.2) Albumin 4.5 g/dL (3.2-4.8) Thyroid Stimulating Hormone (TSH) 0.94 uIU/mL (0.55-4.78) Other Laboratory Tests 02/28/25 05:13 Brief Hx & Hospital Course: Patient is a 60-year-old female with past medical history of hypertension since 20 years, diabetes mellitus, CHF, arthritis. She came to the ED with ongoing 1 week history of pressure-like chest pain, with no radiation, 6/10 in intensity, intermittent, no aggravating factors, relieved by nitroglycerin. Patient complained of shortness of breath after walking a short distance, but denies any headaches, palpitations, nausea, vomiting, syncopal episodes, cough, fever, leg swelling. She also complained of tingling sensation in her hands and feet. Her blood pressure at home and it showed 180/110. She denied any recent travel, sick contacts. On evaluation the ED, patient was hypertensive, 12 lead EKG showed sinus rhythm with prolonged MT interval. Initial labs show CBC within normal range, sodium 141, potassium 3.4, creatinine 0.62, and troponins negative. Chest Xray shows lungs with increased interstitial prominence suggestive of mild pulmonary vascular congestion or viral pneumonia. She was admitted for further work up and monitoring. Brief Hospital course: Patient came to with shortness of the breath and chest pain, and hypertensive urgency called with blood pressure of 180/110 and we ruled out ACS, and IV furosemide 40 mg, IV hydralazine 10 mg, losartan 50 mg, nitroglycerin p.r.n., metoprolol 12.5 mg, morphine 2 mg were given. HFmr EF echo was done and shows EF of 49%, GDMT started and continued. Stress test was done and showed an lvef of 47%, mild lateral wall defect noted, fixed with reversible ischemia, visual TID appears, this can be seen with multivessel cad, abnormal spect, Was consulted for possible catheterization. She has history of diabetes mellitus with HbA1c of 5.8. She has mild pulmonary edema and x-ray shows Mild pulmonary vascular congestion or viral pneumonia. She had mild hypokalemia for which potassium was given. She underwent a left heart catheterization and impression showed Normal left ventricular end-diastolic pressure at rest. Normal ejection fraction. No significant CAD. Cardiology recommended Medical therapy is warranted and continue risk factor modification. The patient is stable for discharge and communicated understanding of her discharge plan and agreed to follow-up with the discharge Clinic in 1 week. General: Patient alert and oriented in person, place and time. Patient following commands. HEENT: Normocephalic, atraumatic, moist mucous membranes Respiratory/pulmonary: Clear lungs bilaterally, vesicular murmurs present in almost all lung lee, no associated crackles or wheezes. Cardiovascular: Normal heart sounds S1 and S2 with no associated murmurs Abdomen: Abdomen nondistended, there is no pain to palpation in any of the abdominal quadrants, no palpable masses. Extremities: There is no peripheral edema present at the lower extremities. Peripheral Pulses: 3+ Radial (R). 3+ Radial (L). 3+ Dorsalis pedis (R). 3+ Dorsalis pedis(L) Skin: No rashes or pruritus, there is no sacral edema present at this time. Neurological: Intact cranial nerves with no focal neurologic deficits Operations or Procedures ORDERING PHYSICIAN: CRESENCIO GAN FEED ADVISER PROCEDURE(s): CWMM - CARDIOLITE MULTIPLE REASON: rule out cad ORDER NUMBER(s): [id number], ACCESSION NUMBER(s): [id number] APPROVED REPORT Exam: Nuclear Stress Test Indication: r/o CAD BMI: 0 Medical History Medical History: HTN, DM, CHF, ARTHRITIS, ANXIETY, OBESITY, EF 50% Stress Test Details Stress Test: Pharmacologic stress testing performed using 0.4 mg of regadenoson per 5 mL given IV over 10 seconds. HR Resting HR: 83 bpm Max Heart Rate (APMHR): 162.050485 bpm Max HR Achieved: 109 bpm Target HR (85% APMHR): 137.171057 bpm % of APMHR: 67.28 Recovery HR: 96 bpm BP Resting BP: 128/61 mmHg Recovery BP: 128/74 mmHg ECG Resting ECG: NSR w/ nonspecific t wave abnormalities Clinical Reason for Termination: Completed protocol Stress ECG Conclusion lvef 47% mild lateral wall defect noted, fixed with reversible ischemia visual TID appears, this can be seen with multivessel cad abnormal spect NM EXAM: Myocardial Perfusion REST/STRESS Imaging Protocol: Rest Tc-99m/Stress Tc-99m 1 day Resting Data Rest SPECT myocardial perfusion imaging was performed in supine position 60 minutes following the intravenous injection of 10.9 mCi of Tc-99m Sestamibi. Time of rest injection: 07:40 Date: 02/26/2025 Time of rest imagin:40 Date: 02/26/2025 Administration Route: IV Administration Site: Right Hand Pharmacologic Stress Pharmacologic stress test was performed by injecting Regadenoson 0.4 mg IV push followed by the intravenous injection of 33.0 mCi of Tc-99m Sestamibi. Time of stress injection: 09:29 Date: 02/26/2025 Time of stress imagin:29 Date: 02/26/2025 Administration Route: IV Administration Site: Right Hand Gated Stress SPECT was performed 60 minutes after stress injection. The images were gated to evaluate regional wall motion and calculate left ventricular ejection fraction. Stress only was performed in the Supine position. Nuclear Conclusion lvef 47% mild lateral wall defect noted, fixed with reversible ischemia visual TID appears, this can be seen with multivessel cad abnormal spect SIGNED BY: VANESSA MORIN MD SIGNED DATE/TIME: 02/26/25 1616 ORDERING PHYSICIAN: JORGE TAMEZ DO PROCEDURE(s): CXRP - CHEST PORTABLE REASON: CP ORDER NUMBER(s): [id number], ACCESSION NUMBER(s): [id number] CHEST RADIOGRAPH Indication: CP Technique: Single frontal view of the chest was obtained COMPARISON: None FINDINGS: Lines and Tubes: None Lungs: Increased interstitial prominence Pleura: No effusion. No pneumothorax. Cardiomediastinal contours: Cardiomegaly Bones: Unremarkable IMPRESSION: Mild pulmonary vascular congestion or viral pneumonia. 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 Furosemide 20 mg Losartan 50 mg Metoprolol Tartrate 12.5 mg Scheduled Aspirin (Aspirin Low Dose), 81 MG PO DAILY Atorvastatin Calcium (Atorvastatin Calcium), 20 MG PO HS Carisoprodol (Soma), 250 MG PO DAILY, (Reported) Empagliflozin (Jardiance), 10 MG PO DAILY Hydrocodone-Acetaminophen ([place] 10/325MG), 10 MG PO DAILY, (Reported) Losartan Potassium (Losartan Potassium), 50 MG PO DAILY Metoprolol Tartrate (Lopressor), 12.5 MG PO BID Zolpidem Tartrate (Ambien), 5 MG PO QHS, (Reported) Scheduled PRN Acetaminophen (Tylenol), 325 MG PO Q4HPRN PRN Zuikcxndvr-Nomifhkbjpmmq-Xdsuu (Fioricet), 1 CAP OR Q6HPRN PRN Ondansetron (Zofran), 1 TAB PO Q6HR PRN Miscellaneous Medications Albuterol Sulfate (Ventolin Mdi), 90 MCG IN, (Reported) Discontinued Medications Atenolol (Atenolol), 25 MG PO DAILY, (Reported) Cephalexin ( Keflex 500), 1 CAP PO QID Cephalexin Monohydrate (Cephalexin), 1 CAP PO QID Cephalexin Monohydrate (Cephalexin), 1 CAP PO BID Ondansetron Odt 4MG Tab (Zofran Po), 1 TAB PO Q8HPRN PRN Discharge Statement: "Patient was advised to return to the ER or call 911 if any headaches, dizziness, shortness of breath, chest pain, abdominal pain, bleeding, fevers, or worsening of medical condition. Patient was counseled about treatment plan, medications, possible side effects, patientverbalized understanding. All questions were answered to the best of my ability. This discharge took greater then 30 minutes in planning, reviewing documentation, counseling the patient, and discussing with other team members." ASSESSMENT ASSESSMENT Assessment # Chest pain Ruled out ACS Date of Service: Feb 28, 2025 Billing Provider: COURTNEY BORREGO MD Common Visit Codes: 13465-SFT/OBS DISCH DAY >30min YONATHAN AZEVEDO Feb 28, 2025 17:31 COURTNEY BORREGO MD Feb 28, 2025 22:04
[2025-02-28] MEDS ORDERED: EMPA1TAB PO (18:54)
[2025-02-28] MEDS ORDERED: MET25T PO (18:54)
[2025-02-28] MEDS ORDERED: ATOR20TA50 PO (18:54)
[2025-02-28] MEDS ORDERED: LOSA-534 PO (18:54)
[2025-02-28] MEDS ORDERED: ASPI-325 PO (18:54)
== END 2025-02-28 20:00 | disposition home or self-care (01) | DRG 287 ==
LOC: ER 11:29 → OVERFLOW 16:37 → EEVIPCON 16:37 → TELE-EAST 22:45
PROVIDERS: ADMIT Student in an Organized Health Care Education/Training Program; ATTEND Student in an Organized Health Care Education/Training Program
PROC: 4A023N7 Measurement of Cardiac Sampling and Pressure, Left Heart, Percutaneous Approach (ICD-10-PCS; principal; 2025-02-28)
PROC: B211YZZ Fluoroscopy of Multiple Coronary Arteries using Other Contrast (ICD-10-PCS; 2025-02-28)
PROC: B215YZZ Fluoroscopy of Left Heart using Other Contrast (ICD-10-PCS; 2025-02-28)
DX: I16.0 Hypertensive urgency (principal); J81.1 Chronic pulmonary edema; I50.22 Chronic systolic (congestive) heart failure; I11.0 Hypertensive heart disease with heart failure; E66.01 Morbid (severe) obesity due to excess calories; F41.9 Anxiety disorder, unspecified; E11.9 Type 2 diabetes mellitus without complications; E87.6 Hypokalemia; Z90.49 Acquired absence of other specified parts of digestive tract; Z98.891 History of uterine scar from previous surgery; Z79.2 Long term (current) use of antibiotics; Z68.34 Body mass index [BMI] 34.0-34.9, adult; Z79.899 Other long term (current) drug therapy
CPT/HCPCS: 36415; 71045; 78452; 80048; 80053; 80061; 80307; 81001; 82962; 83036; 83605; 83735; 83880; 84443; 84484; 85025; 85610; 85730; 93005; 93017; 93306; 93458; 96374; 99152; G0378; J1815; J2250; J2405

== ENCOUNTER → 2025-04-22 | Emergency (ER) | payer OTHER, MEDICAID ==
[~2025-04-22] MED LIST changes: +ALBUAER3 IN; +ASPI-325 PO; -ATEN-60 PO; +ATOR20TA50 PO; -CEPH-510 PO; -CEPH500C PO; +EMPA1TAB PO; +LOSA-534 PO; +MET25T PO; -ZOFR4T PO
== END | disposition left against medical advice (07) ==
LOC: ER 02:16
DX: I10 Essential (primary) hypertension (principal); Z53.21 Procedure and treatment not carried out due to patient leaving prior to being seen by health care provider